=== PATIENT | male | born 1940 | race Caucasian/White ===

== ENCOUNTER → 2018-03-31 10:15 | Outpatient (REF) | payer MEDICARE, SELFPAY ==
[2018-03-31 12:50] LABS: HGB 12.1 g/dL (13.5-17.5); Mean Corp. HGB Concentration 32.7 g/dL (32.0-36.0); Mean Corpuscular Hemoglobin 32.3 pg (27.0-33.0); Mean Corpuscular Volume 98.7 fL (80-95); Mean Platelet Volume 9.1 fL (8.0-11.0); Platelet Count 186 x1000/uL (130-400); RBC 3.75 m/cumm (4.50-6.00); RBC Distribution Width 13.3 % (11.8-14.1); White Blood Cell Count 5.27 k/cumm (4.4-10.8)
[2018-03-31 13:31] LABS: FREE T4 0.89 ng/dL (0.76-1.46); NT-proBNP 117 pg/mL; TSH 8.07 uIU/mL (0.358-3.74)
== END ==
LOC: NCHCN 10:15
PROVIDERS: PCP Internal Medicine; Visit Provider Internal Medicine
DX: E03.9 Hypothyroidism, unspecified (principal); I31.9 Disease of pericardium, unspecified; D64.9 Anemia, unspecified; R06.09 Other forms of dyspnea
CPT/HCPCS: 85027; 83880; 84439; 84443

== ENCOUNTER → 2018-03-31 13:49 | Outpatient (CLI) | payer MEDICARE, SELFPAY ==
--- NOTE | 2018-03-31 13:59 | DI.REPORT_ITS ---
SYMPTOMS/DIAGNOSIS: EXERTIONAL SHORTNESS OF BREATH, R06.09 PA AND LATERAL CHEST: Comparison is made with [id number]. The heart size is normal. There is mild blunting at the right costophrenic angle. No infiltrate, effusion or pulmonary edema is seen. There are underlying fibrotic changes. There is a stable mid thoracic compression fracture. Syndesmophyte formation along the spine is also seen. IMPRESSION: No acute abnormality.
== END ==
PROVIDERS: PCP Internal Medicine; Visit Provider Internal Medicine
DX: R06.09 Other forms of dyspnea (principal)
CPT/HCPCS: 71046

== ENCOUNTER 2018-04-15 15:00 | Outpatient (RCR) | payer MEDICARE, SELFPAY ==
--- NOTE | 2018-03-27 14:41 | IE_ITS ---
Date: March 27, 2018 Referring: Wilbur Fonseca MD M.D. Diagnosis: S/P hip dislocation after THR P.T. 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 He has had a very significant past medical history in the last 2 years. He was cleaning his garage and he fell off a ladder, fracturing vertebra in his neck in the process. This really put him out of commission for quite some time. In his recovery, he started developing heart issues as well, where he was developing fluid around the heart and lungs. On top of all this, he was struggling with severe debilitating pain through the R hip. Eventually, he decided to do something about it once his medical condition, for the most part, improved. He had an anterior THR of the R hip conducted on 03/04/18. On , he was trying to get off of a raised toilet, when he felt a sudden, sharp , stabbing pain through the R hip and was incapable of standing up. He went to the E.R. and x-rays were taken. He was diagnosed with a dislocation anteriorly of his total hip prosthetic. It was reduced that nigh in the ED and he has been on bed rest for the past 2 weeks, as well as the knee placed in a knee immobilizer due to quad dysfunction. He has now been authorized for PT, but strictly no PROM and only active and AA within his tolerable level, and also light scar tissue mobilization. Pain Ratin/10 Prior Level of Function: Walking with severe limp and debilitation through the R hip. Current Level of Function: Almost complete debilitation with hardly any walking beyond a couple hundred feet. Previous Treatment: Nothing. Social: He lives in [place] with his . Comorbidities: History of inflammation around the heart, arthritis, cervical spine fracture. Medications: Tramadol, Tylenol and existing past medical required medications that have been reviewed and you can observe EMR for full details. Quality of Life: __X__ Good Standardized Measures: LEFS score: __100%__ OBJECTIVE: Posture: In standing, pt demonstrates an anteriorly flexed posture into his walker. WBOS, WB bias onto the L. Gait: Ambulates with a step-2 gait pattern into his walker antalgic with reduction of stance time through the R. Palpation: He is tender through the surgical incision. It appears to be healing , although still covered with the dressing. ROM: Measurements for this pt are as follows: L hip Flexion 110 ER 40 IR 20 Abduction 45 R hip Flexion 80 ER 15 IR not assessed Abduction 30 Strength: Measurements for this pt are as follows: Hip flexion 3/5 R, 4+/5 L Quads 4/5 R, 5/5 L Hamstrings 4/5 R, 5/5 L Dorsiflexion 5/5 bilaterally Plantar flexion 5/5 bilaterally Glute medius 3-/5 R, 4-/5 L Neuro: Pt intact to light touch and sensation through LE dermatomes. Motor control appears intact over associated myotomes and pt demonstrates appropriate proprioception and kinesthetic awareness. Special Tests: None at this time due to acuity. Treatment: IE and assessment of functional mobilities, as well as training in a formal exercise program. Pt demonstrated verbal acknowledgment and technique demonstration. IE: X [id number] Direct treatment time: 45 min Total treatment time: 45 min direct pt care ASSESSMENT: Patient is a 77-year-old male with a history of recent health conditions affecting function, referred for PT services with the diagnosis of THR with subsequent dislocation of a prosthetic device 5 days post. Patient presents with clinical signs and symptoms consistent with this diagnosis, as demonstrated by the following impairment level findings: severe ROM and strength limitations through the R, antalgic gait with use of 2 WW, pain at rest through the R hip. Impairments are contributing to the following functional limitations:difficulty with any walking or any head baggage porter and ADLs. Patient is assessed as: __X__ Moderate 50965 complexity, based on the following: History: (list): Inflammation around the heart and pulmonary edema, arthritis, cervical spine fracture. Examination: (list): Severe limitation in AROM through the R hip, strength limitations through the R hip and RLE, antalgic gait and pain at rest. Presentation: X Evolving Decision-Making: X Moderate complexity 100 % Disability based on LEFS __X__ Patient requires skilled PT intervention to remediate the above functional limitations to return to: __X__ Premorbid level of function Prognosis: __X__ Good as evidence suggests improvement of functional abilities with compliance to a detailed HEP tailored to his diagnosis and following through with PT intervention. ____ Patient does not require skilled PT intervention. G-Codes (fill in modifier after appropriate code): Patient's primary functional limitation is in the category of: __X__ Mobility - walking and moving around : [id number] as justified by pt not being able to walk over 100 ft with use of walker and virtually no involvement in normalized head baggage porter and activities. Projected goal: __X__ Mobility - walking and moving around: [id number] [id number] modifier to be utilized as justified by above documentation for necessity of continued Physical Therapy intervention to attend to functional deficits which have not been fully remediated as they approach their Medicare cap. STG: __2__ weeks. 1. Pt will be independent in HEP both verbally and with ideal technique demonstration. LTG: __10__ weeks. 1. Pt able to walk up to 1/2 mile with least restrictive assistive device. 2. Pt unlimited in head baggage porter and activities up to premorbid level of function. PLAN: Patient to be seen 2 x per week, for 10 weeks, adjusting frequency of visits per patient symptoms and response to treatment. Treatment to include: X Manual therapy - [id number]: for enhancing muscle extensibility and improving joint arthrokinematics. X Therapeutic exercise - [id number] tactile cues, verbal education and advanced movement correctives for establishing stability motor control through the core and pelvic girdle, as well as strength and stability through the LEs. X Ultrasound and e-stim available for pain modulation as necessary. The pt will be monitored for compliance to HEP and pts status will be updated accordingly. Plan may be modified as symptoms dictate. Thank you for this referral. Please do not hesitate to contact me with any questions or concerns regarding this patient's plan of care. LUCILLE/fw MEDICAREDr. Fonseca, please sign below and return to PT if you agree with above POC. Wilbur Fonseca MD
--- NOTE | 2018-03-30 16:37 | PTTR_ITS ---
DATE: 03/30/18 SUBJECTIVE: I am doing okay. OBJECTIVE: Manual therapy: ([id number]). Patient was placed in supine and mobilized with the knee in the flexion of 45 position. He was mobilized with soft tissue work through the distal quadriceps up to just inferior of his incision site. Light cross grain massage technique was applied for tension reduction via down regulation and patient mobilized with light trigger point techniques as well through mid substance quad. He tolerated treatment well. Therapeutic procedures ([id number]). * X HEP review: [] * X Provided skilled instruction in proper exercise performance: [] * X Provided skilled manual cues to facilitate proper muscle recruitment and/ or movement pattern: [] * X Other: Patient working through heel slides as well for active hip flexion and extension. He was supported through his SLR, and SAQ. Light isometric hip abduction completed x 10 as well. Direct treatment time: 30 minutes of direct patient care.
--- NOTE | 2018-04-06 15:46 | PTTR_ITS ---
DATE: 04/06/18 SUBJECTIVE: I am doing okay for the most part. OBJECTIVE: Therapeutic procedures ([id number]). * X HEP review: Technique review and corrective modification where appropriate. * X Provided skilled instruction in proper exercise performance: [] * X Provided skilled manual cues to facilitate proper muscle recruitment and/ or movement pattern: [] * X Other: Patient was guided through his strengthening program which began with active hip motion heel slides, then SAQ for 2 sets of 10. Terminal mass extension was performed with good tolerance for 1 minute of interval, and elevated hip girdle early bridging was performed with good technique and tolerance. Patient transfers from supine to sit and sit to stand without knee immobilizer and is able to walk 200 feet as well. Light soft tissue work was completed over the anterior quadriceps for desensitization. Patient tolerated treatment well. Direct treatment time: 30 minutes of direct patient care.
--- NOTE | 2018-04-09 15:48 | PTTR_ITS ---
DATE: 04/09/18 SUBJECTIVE: I am doing pretty much the same. OBJECTIVE: Therapeutic procedures ([id number]). * X HEP review: Technique review and corrective modification where appropriate. * X Provided skilled instruction in proper exercise performance: [] * X Provided skilled manual cues to facilitate proper muscle recruitment and/ or movement pattern: [] * X Other: Patient was removed from the immobilizer for his exercises. He performed Assisted SLR 2 x 10, bridge with unweighting for isometric hold 2 x 10. Mass extensions form hip 85 degrees of flexion and 90 degrees of knee flexion. Patient performing SAQ from 20 degrees of knee flexion coupled with heel slides. He was then placed in 45 degrees of hip and knee flexion with gentle soft tissue mobilization of the quadriceps. Direct treatment time: 30 minutes of direct patient care.
--- NOTE | 2018-04-15 16:39 | PTTR_ITS ---
DATE: 04/15/18 SUBJECTIVE: I am doing okay for the most part. OBJECTIVE: Therapeutic procedures ([id number]). * X HEP review: Technique review and corrective modification where appropriate. * X Provided skilled instruction in proper exercise performance: [] * X Provided skilled manual cues to facilitate proper muscle recruitment and/ or movement pattern: [] * X Other: Patient was guided through his exercises with good attention to corrective movement. He also received light soft tissue work to the anterior thigh just distal to his incision for decompression and muscle tension relief. Direct treatment time: 25 minutes of direct patient care.
== END 2018-04-17 23:59 | disposition home or self-care (01) ==
LOC: PT 15:00
PROVIDERS: PCP Internal Medicine; Referring Provider Orthopaedic Surgery Adult Reconstructive Orthopaedic Surgery; Visit Provider Orthopaedic Surgery Adult Reconstructive Orthopaedic Surgery
DX: Z47.1 Aftercare following joint replacement surgery (principal); Z96.641 Presence of right artificial hip joint
CPT/HCPCS: 97110; 97140; 97162; G8978

== ENCOUNTER → 2018-06-10 13:59 | Outpatient (BNVA) | payer MEDICARE, SELFPAY | PROVIDERS: PCP Internal Medicine; Referring Provider Internal Medicine; Visit Provider Student in an Organized Health Care Education/Training Program | DX: M75.81 Other shoulder lesions, right shoulder (principal); M25.511 Pain in right shoulder | CPT/HCPCS: 99214 ==

== ENCOUNTER → 2018-07-22 14:40 | Outpatient (BNVA) | payer MEDICARE, SELFPAY | PROVIDERS: PCP Internal Medicine; Referring Provider Internal Medicine; Visit Provider Student in an Organized Health Care Education/Training Program | DX: M75.81 Other shoulder lesions, right shoulder (principal) | CPT/HCPCS: 99212; 99213 ==

== ENCOUNTER 2018-08-21 17:22 | Outpatient (REF) | payer MEDICARE, SELFPAY ==
[2018-08-21 20:52] LABS: HCT 39.1 % (40.0-50.0); HGB 12.7 g/dL (13.5-17.5); Mean Corp. HGB Concentration 32.5 g/dL (32.0-36.0); Mean Corpuscular Hemoglobin 32.6 pg (27.0-33.0); Mean Corpuscular Volume 100.5 fL (80-95); Mean Platelet Volume 9.8 fL (8.0-11.0); Platelet Count 121 x1000/uL (130-400); RBC 3.89 m/cumm (4.50-6.00); RBC Distribution Width 14.7 % (11.8-14.1); White Blood Cell Count 3.83 k/cumm (4.4-10.8)
[2018-08-21 21:11] LABS: ALT 38 U/L (12-78); AST 36 U/L (15-37); Albumin 3.5 g/dL (3.4-5.0); Alkaline Phosphatase 85 U/L (46-116); Anion Gap 6.8 mmol/L (3-11); BUN 18 mg/dL (7-18); Bilirubin, Total 0.4 mg/dL (0.2-1.0); CO2 31.2 mmol/L (21.0-32.0); CREATININE 1.03 mg/dL (0.70-1.30); Calcium 8.9 mg/dL (8.5-10.1); Chloride 103 mmol/L (98-107); FREE T4 1.73 ng/dL (0.76-1.46); Glucose 96 mg/dL (70-100); NT-proBNP 143 pg/mL; Potassium 4.2 mmol/L (3.5-5.1); Sodium 141 mmol/L (136-145); TSH 0.03 uIU/mL (0.358-3.74)
[2018-08-25 18:13] LABS: Thyrotropin Receptor Ab <1.00 IU/L
== END 2018-08-21 17:42 ==
LOC: NCHCN 17:22
PROVIDERS: PCP Internal Medicine; Visit Provider Internal Medicine
DX: R53.83 Other fatigue (principal); R00.0 Tachycardia, unspecified; R63.4 Abnormal weight loss; E03.9 Hypothyroidism, unspecified; R06.09 Other forms of dyspnea; E05.90 Thyrotoxicosis, unspecified without thyrotoxic crisis or storm
CPT/HCPCS: 80053; 85027; 83880; 84235; 84439; 84443; 84481

== ENCOUNTER 2018-09-17 00:47 | Outpatient (CLI) | payer MEDICARE, SELFPAY ==
--- NOTE | 2018-09-17 10:15 | DI.NM_ITS ---
SYMPTOMS/DIAGNOSIS: HYPERTHYROIDISM, E05.90 THYROID UPTAKE AND SCAN: Please see dictation dated 09/18/18 for the complete results of this examination.
== END 2018-09-17 01:07 ==
PROVIDERS: PCP Internal Medicine; Visit Provider Internal Medicine
DX: E05.90 Thyrotoxicosis, unspecified without thyrotoxic crisis or storm (principal)
CPT/HCPCS: A9516

== ENCOUNTER 2018-09-18 00:15 | Outpatient (CLI) | payer MEDICARE, SELFPAY ==
--- NOTE | 2018-09-18 10:15 | DI.NM_ITS ---
SYMPTOM/DIAGNOSIS: HYPERTHYROIDISM E05.90 THYROID UPTAKE AND SCAN: 09/17/18 24 HOUR radiographic iodine uptake determination was performed with ingestion of 347 microcuries of I-123 capsule. 24 hour uptake is calculated at 1.9% which is below the normal range. Scanning of the cervical region approximately 4 hours post ingestion of radiopharmaceutical shows fairly homogeneous appearance of the thyroid as visualized. CONCLUSION: Abnormally decreased thyroid uptake determination. Thyroid scan grossly unremarkable considering the decreased thyroid uptake.
== END 2018-09-18 00:35 ==
PROVIDERS: PCP Internal Medicine; Visit Provider Internal Medicine
DX: E05.90 Thyrotoxicosis, unspecified without thyrotoxic crisis or storm (principal); R94.6 Abnormal results of thyroid function studies
CPT/HCPCS: 78014; A9512

== ENCOUNTER 2018-10-09 12:20 | Outpatient (CLI) | payer MEDICARE, SELFPAY ==
--- NOTE | 2018-10-09 16:06 | DI.RAD_ITS ---
SYMPTOM/DIAGNOSIS: NONPRODUCTIVE COUGH, R05 PA AND LATERAL CHEST: Comparison is made with 03/31/18. The heart size is normal. The aorta is tortuous but normal in diameter. The lungs are not well inflated on either view. Linear scarring is again noted at the lung bases. No superimposed infiltrate, effusion or pulmonary edema is seen. A mid thoracic compression fracture and bony changes in the spine of ankylosing spondylitis are noted. IMPRESSION: No acute abnormality.
== END 2018-10-09 12:40 ==
PROVIDERS: PCP Internal Medicine; Visit Provider Internal Medicine
DX: R05 Cough (principal); J98.4 Other disorders of lung
CPT/HCPCS: 71046

== ENCOUNTER 2018-10-22 02:27 | Outpatient (CLI) | payer MEDICARE, SELFPAY ==
[2018-10-22 16:12] LABS: Abs Immature Grans 0.01 k/cumm (0.0-0.09); Absolute Basophil Count 0.03 k/cumm (0.0-0.2); Absolute Eosinophil Count 0.24 k/cumm (0.0-0.7); Absolute Monocyte Count 0.57 k/cumm (0.11-0.7); Absolute Neutrophil Count 2.25 k/cumm (1.2-6.7); Basophils % 0.7; Eosinophils % 5.7; HCT 38.6 % (40.0-50.0); HGB 12.5 g/dL (13.5-17.5); Immature Grans % 0.2; Lymphocytes % 26.2; Mean Corp. HGB Concentration 32.4 g/dL (32.0-36.0); Mean Corpuscular Hemoglobin 31.5 pg (27.0-33.0); Mean Corpuscular Volume 97.2 fL (80-95); Mean Platelet Volume 9.2 fL (8.0-11.0); Monocytes % 13.6; Neutrophils % 53.6; Platelet Count 128 x1000/uL (130-400); RBC 3.97 m/cumm (4.50-6.00); RBC Distribution Width 13.1 % (11.8-14.1)
[2018-10-22 17:02] LABS: FREE T4 1.18 ng/dL (0.76-1.46); TSH 0.07 uIU/mL (0.358-3.74)
[2018-10-22 21:06] LABS: T3,Free 4.7 pg/ml (2.8-5.3)
== END 2018-10-22 02:47 ==
PROVIDERS: PCP Internal Medicine; Visit Provider Internal Medicine Rheumatology
DX: E05.90 Thyrotoxicosis, unspecified without thyrotoxic crisis or storm (principal); D61.818 Other pancytopenia; R76.8 Other specified abnormal immunological findings in serum
CPT/HCPCS: 36415; 84439; 84443; 84481; 85025

== ENCOUNTER 2019-01-19 11:19 | Outpatient (REF) | payer MEDICARE, SELFPAY ==
[2019-01-19 22:06] LABS: HCT 43.4 % (40.0-50.0); Mean Corp. HGB Concentration 32.3 g/dL (32.0-36.0); Mean Corpuscular Hemoglobin 31.5 pg (27.0-33.0); Mean Corpuscular Volume 97.5 fL (80-95); Platelet Count 123 x1000/uL (130-400); RBC 4.45 m/cumm (4.50-6.00); RBC Distribution Width 13.4 % (11.8-14.1); White Blood Cell Count 5.11 k/cumm (4.4-10.8)
[2019-01-19 22:26] LABS: FREE T4 0.65 ng/dL (0.76-1.46); TSH 19.01 uIU/mL (0.358-3.74)
[2019-01-20 17:02] LABS: T3,Free 3.5 pg/ml (2.8-5.3)
== END 2019-01-19 11:39 ==
LOC: NCHCN 11:19
PROVIDERS: PCP Internal Medicine; Visit Provider Internal Medicine
DX: D64.9 Anemia, unspecified (principal); Z86.39 Personal history of other endocrine, nutritional and metabolic disease
CPT/HCPCS: 85027; 84439; 84443; 84481

== ENCOUNTER 2019-02-16 15:30 | Outpatient (REF) | payer MEDICARE, SELFPAY ==
[2019-02-16 22:05] LABS: Abs Immature Grans 0.01 k/cumm (0.0-0.09); Absolute Basophil Count 0.01 k/cumm (0.0-0.2); Absolute Eosinophil Count 0.31 k/cumm (0.0-0.7); Absolute Lymphocyte Count 0.99 k/cumm (1.2-3.4); Absolute Monocyte Count 0.78 k/cumm (0.11-0.7); Absolute Neutrophil Count 3.56 k/cumm (1.2-6.7); Basophils % 0.2; Eosinophils % 5.5; HCT 40.4 % (40.0-50.0); HGB 13.2 g/dL (13.5-17.5); Immature Grans % 0.2; Lymphocytes % 17.5; Mean Corp. HGB Concentration 32.7 g/dL (32.0-36.0); Mean Corpuscular Hemoglobin 31.2 pg (27.0-33.0); Mean Corpuscular Volume 95.5 fL (80-95); Mean Platelet Volume 10.1 fL (8.0-11.0); Monocytes % 13.8; Neutrophils % 62.8; Platelet Count 102 x1000/uL (130-400); RBC 4.23 m/cumm (4.50-6.00); RBC Distribution Width 13.3 % (11.8-14.1); White Blood Cell Count 5.66 k/cumm (4.4-10.8)
[2019-02-16 22:50] LABS: Anion Gap 7.3 mmol/L (3-11); BUN 14 mg/dL (7-18); CO2 29.7 mmol/L (21.0-32.0); CREATININE 1.16 mg/dL (0.70-1.30); Calcium 8.6 mg/dL (8.5-10.1); Chloride 99 mmol/L (98-107); Glucose 103 mg/dL (70-100); NT-proBNP 174 pg/mL; Sodium 136 mmol/L (136-145); TSH (W/Ref FT4) 10.35 uIU/mL (0.358-3.74)
[2019-02-16 23:15] LABS: FREE T4 0.94 ng/dL (0.76-1.46)
== END 2019-02-16 15:50 ==
LOC: NCHCN 15:30
PROVIDERS: PCP Internal Medicine; Visit Provider Nurse Practitioner Family
DX: R60.0 Localized edema (principal); R53.83 Other fatigue; R06.09 Other forms of dyspnea
CPT/HCPCS: 80048; 83735; 83880; 84439; 84443; 85025

== ENCOUNTER 2019-02-17 07:03 | Outpatient (CLI) | payer MEDICARE, SELFPAY ==
--- NOTE | 2019-02-17 11:44 | DI.RAD_ITS ---
SYMPTOMS/DIAGNOSIS: PEDAL EDEMA, R60.0, FATIGUE, R53.83 PA AND LATERAL CHEST: The lungs are free of infiltrate. There is no pleural effusion. The heart is not enlarged. SUMMARY: No evidence of congestive failure or pneumonia.
== END 2019-02-17 07:23 ==
PROVIDERS: PCP Internal Medicine; Visit Provider Nurse Practitioner Family
DX: R60.0 Localized edema (principal); R53.83 Other fatigue
CPT/HCPCS: 71046

== ENCOUNTER 2019-04-08 13:09 | Outpatient (REF) | payer MEDICARE, SELFPAY ==
[2019-04-08 22:00] LABS: FREE T4 0.86 ng/dL (0.76-1.46); TSH 8.05 uIU/mL (0.36-3.74)
== END 2019-04-08 13:29 ==
LOC: NCHCN 13:09
PROVIDERS: PCP Internal Medicine; Visit Provider Internal Medicine
DX: E03.9 Hypothyroidism, unspecified (principal)
CPT/HCPCS: 84439; 84443

== ENCOUNTER 2019-10-07 15:26 | Outpatient (REF) | payer MEDICARE, SELFPAY ==
[2019-10-08 17:15] LABS: T3,Free 3.4 pg/mL (2.8-5.3)
== END 2019-10-07 15:46 ==
LOC: NCHCN ADD 15:26
PROVIDERS: PCP Internal Medicine; Visit Provider Internal Medicine
DX: E03.9 Hypothyroidism, unspecified (principal); Z86.79 Personal history of other diseases of the circulatory system
CPT/HCPCS: 84439; 84443; 84481

== ENCOUNTER 2019-12-14 16:30 | Outpatient (REF) | payer MEDICARE, SELFPAY ==
[2019-12-14 21:12] LABS: ALT 32 U/L (16-63); AST 26 U/L (15-37); Albumin 3.7 g/dL (3.4-5.0); Alkaline Phosphatase 71 U/L (46-116); Anion Gap 5.9 mmol/L (3-11); BUN 18 mg/dL (7-18); Bilirubin, Total 0.5 mg/dL (0.2-1.0); CO2 31.1 mmol/L (21.0-32.0); CREATININE 1.29 mg/dL (0.70-1.30); Calcium 8.9 mg/dL (8.5-10.1); Chloride 100 mmol/L (98-107); Estimated GFR 53.46 (mL/min/1.73m2); Glucose 142 mg/dL (74-106); Potassium 4.9 mmol/L (3.5-5.1); Sodium 137 mmol/L (136-145); TSH (W/Ref FT4) 6.35 uIU/mL (0.36-3.74); Total Protein 7.5 g/dL (6.4-8.2)
[2019-12-14 22:55] LABS: FREE T4 0.92 ng/dL (0.76-1.46)
== END 2019-12-14 16:50 ==
LOC: NCHCN 16:30
PROVIDERS: PCP Internal Medicine; Visit Provider Internal Medicine
DX: E03.9 Hypothyroidism, unspecified (principal); F32.9 Major depressive disorder, single episode, unspecified; D64.9 Anemia, unspecified
CPT/HCPCS: 80053; 84439; 84443; 85025

== ENCOUNTER 2019-12-15 11:49 | Outpatient (REF) | payer MEDICARE, SELFPAY ==
[2019-12-15 20:49] LABS: Abs Immature Grans 0.02 k/cumm (0.0-0.09); Absolute Basophil Count 0.02 k/cumm (0.0-0.2); Absolute Eosinophil Count 0.31 k/cumm (0.0-0.7); Absolute Lymphocyte Count 1.54 k/cumm (1.2-3.4); Absolute Monocyte Count 1.12 k/cumm (0.11-0.7); Absolute Neutrophil Count 3.11 k/cumm (1.2-6.7); Basophils % 0.3; Eosinophils % 5.1; HGB 13.6 g/dL (13.5-17.5); Immature Grans % 0.3 %; Lymphocytes % 25.2; Mean Corp. HGB Concentration 33.2 g/dL (32.0-36.0); Mean Corpuscular Hemoglobin 32.2 pg (27.0-33.0); Mean Corpuscular Volume 96.9 fL (80-95); Mean Platelet Volume 9.6 fL (8.0-11.0); Monocytes % 18.3; Neutrophils % 50.8; Platelet Count 126 x1000/uL (130-400); RBC 4.23 m/cumm (4.50-6.00); RBC Distribution Width 12.6 % (11.8-14.1); White Blood Cell Count 6.12 k/cumm (4.4-10.8)
== END 2019-12-15 12:09 ==
LOC: NCHCN 11:49
PROVIDERS: PCP Internal Medicine; Visit Provider Internal Medicine
DX: D64.9 Anemia, unspecified (principal)
CPT/HCPCS: 85025

== ENCOUNTER 2020-02-15 16:15 | Outpatient (REF) | payer MEDICARE, SELFPAY ==
[2020-02-15 21:18] LABS: FREE T4 1.11 ng/dL (0.76-1.46); TSH 2.61 uIU/mL (0.36-3.74)
[2020-02-15 21:23] LABS: Hemoglobin A1C 5.4 % (3.8-5.6)
== END 2020-02-15 16:35 ==
LOC: NCHCN 16:15
PROVIDERS: PCP Internal Medicine; Visit Provider Internal Medicine
DX: E03.9 Hypothyroidism, unspecified (principal); R73.09 Other abnormal glucose; Z86.39 Personal history of other endocrine, nutritional and metabolic disease
CPT/HCPCS: 83036; 84439; 84443

== ENCOUNTER 2021-02-05 18:50 | Outpatient (REF) | payer MEDICARE, SELFPAY ==
[2021-02-05 22:01] LABS: HCT 40.8 % (40.0-50.0); HGB 13.2 g/dL (13.5-17.5); MCH 31.5 pg (27.0-33.0); MCHC 32.4 % (32.0-36.0); MCV 97.4 fL (80-95); MPV 9.2 fL (8.0-11.0); Platelet Count 131 10^3/uL (130-400); RBC 4.19 10^6/uL (4.36-5.78); RDW 12.8 % (11.8-14.1); RDW-SD 46.2 fL; WBC 8.05 10^3/uL (4.4-10.8)
[2021-02-05 22:31] LABS: ALT 37 U/L (16-63); AST 30 U/L (15-37); Albumin 3.8 g/dL (3.4-5.0); Alkaline Phosphatase 72 U/L (46-116); Anion Gap 8.6 mmol/L (3-11); BUN 19 mg/dL (7-18); Bilirubin, Total 0.8 mg/dL (0.2-1.0); CO2 28.4 mmol/L (21.0-32.0); CREATININE 1.3 mg/dL (0.70-1.30); Calcium 8.6 mg/dL (8.5-10.1); Chloride 98 mmol/L (98-107); Estimated GFR 52.85 (mL/min/1.73m2); FREE T4 1.08 ng/dL (0.76-1.46); Glucose 128 mg/dL (74-106); Potassium 4.5 mmol/L (3.5-5.1); Sodium 135 mmol/L (136-145); TSH 1.49 uIU/mL (0.36-3.74); Total Protein 7.5 g/dL (6.4-8.2)
[2021-02-07 14:22] LABS: COVID-19 RT-PCR UVMMC Result Negative (Negative)
== END 2021-02-05 18:51 | disposition home or self-care (01) ==
LOC: NCHCN 18:50
PROVIDERS: PCP Internal Medicine; Visit Provider Internal Medicine
DX: R41.82 Altered mental status, unspecified (principal); J18.9 Pneumonia, unspecified organism; Z20.822 Contact with and (suspected) exposure to COVID-19
CPT/HCPCS: 80053; 85027; U0003; 84439; 84443

== ENCOUNTER 2021-02-07 11:03 | Emergency (ER) | payer MEDICARE, SELFPAY ==
[2021-02-07 11:07] VITALS: BP 143/80; PULSE 101; RESP 18; TEMP 37.1; O2SAT 95
[2021-02-07 11:20] VITALS: RESP 18
--- NOTE | 2021-02-07 11:25 | RT.EKG_ITS ---
APPROVED REPORT Exam: Resting ECG Reason for Exam: SOB Patient Location: E HR:95 bpm ECG Measurements Heart Rate 95 AXIS IA 176 P 50 QRSd 97 QRS 71 QT 362 T -38 QTc 455 Conclusion Sinus rhythm...normal P axis, V-rate 60- 99 Borderline T abnormalities, diffuse leads...T flat/neg. No STEMI. I have reviewed and interpreted ECG and agree with software generated interpretation.
--- NOTE | 2021-02-07 11:30 | ED.GENADUL_ITS ---
Discharge Plan Disposition Patient Disposition: HOME Condition: Stable Discharge Details Clinical Impression: Cough Primary Care Provider: Prakash Curran ED Provider: Chelsea Mariano Home Meds and New Rx's Prescriptions: New albuterol sulfate 90 mcg/actuation HFA aerosol inhaler 2 puff IH QID PRN (Reason: shortness of breath or wheezing) Qty: 8 RF: 0 Continued multivitamin [Daily Multiple] 1 EACH tablet 1 ea PO DAILY RF: 0 acetaminophen [Tylenol] 325 MG tablet 325 mg PO PRN RF: 0 aspirin 81 MG tablet,chewable 81 mg PO DAILY RF: 0 levothyroxine 100 mcg tablet 100 mcg PO DAILY RF: 0 amoxicillin 875 mg tablet 875 mg PO BID RF: 0 doxycycline hyclate 100 mg tablet 100 mg PO BID RF: 0 Lumigan 0.01 % drops 1 drp ophthalmic (eye) HS RF: 0 Discharge Instructions Instructions: Acute Cough (ED) Additional Instructions: Continue taking the antibiotics previously prescribed. Use albuterol inhaler 1 to 2 puffs every 4-6 hours as needed for wheezing or shortness of breath. At this time you have no evidence for need for admission. Follow up with primary care provider in 3-5 days. Return to ED sooner if any worsening or concerns. Increase oral fluids. Referrals: Prakash Curran MD [Primary Care Provider] - Discharge Data Discharge Date/Time-TO BE ENTERED AT DEPARTURE: 02/07/21 15:02 Medical Decision Making 80-year-old male with a history of hypothyroidism, dyspepsia, atrial flutter, pericarditis, subdural hematoma, arthritis former smoker, who presents to the ER from the PCP office for worsening possible pneumonia. Patient states that he has had a congested cough for the past 9 days with some exertional shortness of breath. Was seen by his PCP and prescribed doxycycline and amoxicillin which she has taken for the last few days. He denies any nausea vomiting diarrhea denies any chest pain. He does endorse some chills no fever. Upon initial exam he is alert and oriented O2 sat is 94% on room air, he does have scattered wheezes rhonchi in the right lower lobe. He is speaking in full sentences. He has been vaccinated for COVID-19. Work-up ordered including CBC, CMP, serial troponins, EKG, chest x-ray, blood cultures x2, albuterol, ipratropium neb, COVID-19 swab ordered to rule out viral illness. EXAM: XR PORTABLE CHEST AP CLINICAL HISTORY: SOB, Hx pneumonia. TECHNIQUE: 2D digital imaging was performed. COMPARISON: CR XR CHEST 2V PA LATERAL from 02/17/2019 FINDINGS: Chest leads in place. Heart size upper normal, unchanged. The mediastinum is not widened. Platelike atelectasis or scarring in the left lung base is unchanged. Also platelike atelectasis or scarring in the right lung base also unchanged. There are mild increased markings in both lung hackett but no new infiltrates nor pleural effusions. No pulmonary edema. Calcific rotator cuff tendinitis right shoulder is incidentally noted IMPRESSION: Bibasilar atelectasis or scarring, with minimal changed from two view study of February 2019. CBC shows no evidence for leukocytosis, platelets are 113, serial troponins are within normal limits. Discussed findings with patient who verbalized understanding instructed to continue taking the previously prescribed antibiotics sent home with an albuterol inhaler 2 puffs every 4-6 hours as needed for shortness of breath and wheezing. Instructed to follow-up with PCP in 3 to 5 days return if any worsening. HPI General Mode of arrival: EMS . Date/Time Provider Initiated Documentation: 02/07/21 11:16 . Limitations to Documentation: no limitations . Information obtained by: patient, RN notes reviewed and old records reviewed . HPI Narrative: 80-year-old male with a history of hypothyroidism, dyspepsia, atrial flutter, pericarditis, subdural hematoma, arthritis former smoker, who presents to the ER from the PCP office for worsening possible pneumonia. Patient states that he has had a congested cough for the past 9 days with some exertional shortness of breath. Was seen by his PCP and prescribed doxycycline and amoxicillin which she has taken for the last few days. He denies any nausea vomiting diarrhea denies any chest pain. He does endorse some chills no fever. Upon initial exam he is alert and oriented O2 sat is 94% on room air, he does have scattered wheezes rhonchi in the right lower lobe. He is speaking in full sentences. He has been vaccinated for COVID-19 Related Data Home Medications Medication Instructions Recorded Confirmed multivitamin [Daily Multiple] 1 ea PO DAILY 12/01/15 02/07/21 acetaminophen [Tylenol] 325 mg PO PRN 04/11/17 02/07/21 aspirin 81 mg PO DAILY tab-cap 04/11/17 02/07/21 Jake 1 drp OPHTHALMIC (EYE) HS 02/07/21 02/07/21 albuterol sulfate 2 puff IH QID PRN #8 gm 02/07/21 amoxicillin 875 mg PO BID 02/07/21 02/07/21 doxycycline hyclate 100 mg PO BID 02/07/21 02/07/21 levothyroxine 100 mcg PO DAILY 02/07/21 02/07/21 Previous Rx's Medication Instructions Recorded albuterol sulfate 2 puff IH QID PRN #8 gm 02/07/21 Allergies Allergy/AdvReac Type Severity Reaction Status Date / Time methotrexate Allergy Skin Rash Unverified 02/07/21 11:13 Sulfa (Sulfonamide Allergy flu like Unverified 02/07/21 11:13 Antibiotics) sx, rash head to toe, abn gait General Stated Complaint: SOB YOHANA: 2 Review of Systems Narrative: Constitutional: Negative for weight loss, alert and oriented, well groomed, normal body habitus, appears comfortable. HEENT: Denies trauma, headaches, blurry vision, nasal discharge, sore throat, trouble swallowing. Chest: Denies chest pain, palpitations, has a history of atrial flutter. Respiratory: Denies hemoptysis. Reports mild exertional shortness of breath, congested cough nonproductive. GI: Denies abdominal pain, nausea, vomiting, diarrhea, constipation. : Denies dysuria, hematuria, flank pain, rectal bleeding. Neuro: Denies dizziness, blurry vision, syncope, headache or facial numbness. Hematologic: Denies easy bruising, intolerance to heat or cold, hair loss. [facility] Social History Smoking/Tobacco Use Status: Former Tobacco Use Smoking risk assessment performed?: Yes Alcohol Intake: never Drug use: Never Do you feel safe at home: Yes Do you feel safe in your relationship?: Yes Exam Narrative Exam Narrative: Constitutional: Alert and oriented x3. Appears stated age. Normal body habitus. Head: Normocephalic, no trauma. Eyes: Pupils PERRLA, Red reflex noted, EOM's intact. Eyelids symmetrical without lesions, discharge, or swelling. ENT: Bilateral TM's WNL, External ear normal to inspection, no mastoid TTP, swelling, or erythema, Nasal turbinates WNL, no nasal discharge. Normal dentition, Posterior pharynx WNL, no exudate. Chest: RRR, Normal S1, S2, distal pulses intact. Resp: Lungs notably have expiratory scattered wheezes, rhonchi auscultated to the right lower lobe. Congested cough. Abdomen: Soft, nondistended nontender to palpation all 4 quadrants. Musculoskeletal: Normal gait, 5/5 strength to all four extremities. No edema noted to bilateral lower extremities. Skin: No suspicious rashes or lesions. Capillary refill less than 2 sec. Neurologic: Cranial nerves II-XII intact. Alert and oriented x 3. DTR's intact. Hematologic/Lymphatic: No ecchymosis, no lymphadenopathy. Course Vital Signs Vital signs: Vital Signs Temperature 37.1 C 02/07/21 11:07 Pulse 101 H 02/07/21 11:07 Respiratory Rate 18 02/07/21 11:07 Blood Pressure 143/80 H 02/07/21 11:07 Pulse Oximetry 95 02/07/21 11:07 Temperature 37.1 C 02/07/21 11:07 Temperature Source Oral 02/07/21 11:07 Pulse 101 H 02/07/21 11:07 Respiratory Rate 18 02/07/21 11:20 Respiratory Effort 02/07/21 11:20 Respiratory Depth Normal 02/07/21 11:20 Respiratory Pattern Normal 02/07/21 11:20 Blood Pressure 143/80 H 02/07/21 11:07 Blood Pressure Position Supine 02/07/21 11:07 Pulse Oximetry 95 02/07/21 11:07 Oxygen Delivery Method Room Air 02/07/21 11:07 Oxygen Flow Rate 0 02/07/21 11:07 Pain Level 0 02/07/21 11:07
[2021-02-07 11:58] LABS: Abs Immature Grans 0.04 10^3/uL (0.0-0.06); Absolute Basophil Count 0.03 10^3/uL (0.0-0.2); Absolute Eosinophil Count 0.24 10^3/uL (0.0-0.7); Absolute Lymphocyte Count 1.18 10^3/uL (1.2-3.4); Absolute Monocyte Count 1.07 10^3/uL (0.1-0.8); Absolute Neutrophil Count 6.94 10^3/uL (1.2-6.7); Basophils % 0.3; Eosinophils % 2.5; HCT 40.6 % (40.0-50.0); HGB 13.6 g/dL (13.5-17.5); Immature Grans % 0.4; Lymphocytes % 12.4; MCH 32.3 pg (27.0-33.0); MCHC 33.5 % (32.0-36.0); MCV 96.4 fL (80-95); MPV 9.1 fL (8.0-11.0); Monocytes % 11.3; Neutrophils % 73.1; Nucleated RBC 0 %; Platelet Count 113 10^3/uL (130-400); RBC 4.21 10^6/uL (4.36-5.78); RDW 13.2 % (11.8-14.1)
[2021-02-07 12:01] LABS: Source Nasal/Nares
[2021-02-07 12:01] LABS: ALT 29 U/L (16-63); AST 28 U/L (15-37); Albumin 3.4 g/dL (3.4-5.0); Alkaline Phosphatase 59 U/L (46-116); Anion Gap 8.1 mmol/L (3-11); BUN 22 mg/dL (7-18); Bilirubin, Total 0.7 mg/dL (0.2-1.0); CO2 28.9 mmol/L (21.0-32.0); CREATININE 1.3 mg/dL (0.70-1.30); Calcium 8.8 mg/dL (8.5-10.1); Chloride 100 mmol/L (98-107); Estimated GFR 52.85 (mL/min/1.73m2); Glucose 146 mg/dL (74-106); Magnesium 2.3 mg/dL (1.8-2.4); Potassium 3.8 mmol/L (3.5-5.1); Sodium 137 mmol/L (136-145); Total Protein 7.8 g/dL (6.4-8.2)
[2021-02-07 12:04] LABS: Troponin I < 0.05 ng/mL (<0.06)
--- NOTE | 2021-02-07 12:40 | DI.RAD_ITS ---
Exam(s) XR PORTABLE CHEST AP EXAM: XR PORTABLE CHEST AP CLINICAL HISTORY: SOB, Hx pneumonia. TECHNIQUE: 2D digital imaging was performed. COMPARISON: CR XR CHEST 2V PA LATERAL from 02/17/2019 FINDINGS: Chest leads in place. Heart size upper normal, unchanged. The mediastinum is not widened. Platelike atelectasis or scarring in the left lung base is unchanged. Also platelike atelectasis or scarring in the right lung base also unchanged. There are mild increased markings in both lung field s but no new infiltrates nor pleural effusions. No pulmonary edema. Calcific rotator cuff tendiniti s right shoulder is incidentally noted IMPRESSION: Bibasilar atelectasis or scarring, with minimal changed from two view study of February 2019. DATA REPOSITORY: RADIATION DOSE DELIVERED: All CT scans at this facility use at least one of these dose optimization techniques: automated exposure control; mA and/or kV adjustment per patient size (includes targeted e xams where dose is matched to clinical indication); or iterative reconstruction.
[2021-02-07 12:49] VITALS: PULSE 85; RESP 17; RESP 2; RESP 7; O2SAT 95
[2021-02-07] MEDS: Albuterol/Ipratropium 3 ML UPD VIAL UPD (12:49)
[2021-02-07 12:57] LABS: COVID-19 PCR Negative (Negative)
[2021-02-07 13:01] VITALS: BP 111/73; PULSE 90; RESP 17; TEMP 36.8; O2SAT 100
[2021-02-07 14:28] VITALS: BP 124/64; PULSE 82; RESP 16; TEMP 36.8; O2SAT 95
== END 2021-02-07 15:02 | disposition home or self-care (01) ==
PROVIDERS: Emergency Provider Registered Nurse Emergency; PCP Internal Medicine
DX: R05 Cough (principal); R06.09 Other forms of dyspnea; Z20.822 Contact with and (suspected) exposure to COVID-19; Z03.818 Encounter for observation for suspected exposure to other biological agents ruled out; Z87.891 Personal history of nicotine dependence
CPT/HCPCS: 36410; 36415; 80053; 87040; 87635; 93005; 94640; 99285; 71045; 83735; 84484; 85025; 93010; 99284; J7620

== ENCOUNTER 2021-03-05 10:34 | Outpatient (CLI) | payer MEDICARE, SELFPAY ==
--- NOTE | 2021-03-05 09:45 | DI.RAD_ITS ---
Exam(s) XR HIP RT COMPLETE AP PELVIS EXAM: XR HIP RT COMPLETE AP PELVIS CLINICAL HISTORY: right SILAS. TECHNIQUE: 2D digital imaging was performed. COMPARISON: Prior x-rays 03/09/2018 FINDINGS: Stable position alignment of the right hip prosthesis. No fracture nor loosening evident. Circumfer ential wires at the intertrochanteric level appear intact no obvious loosening and no radiographic ev idence of osteomyelitis. IMPRESSION: DATA REPOSITORY: RADIATION DOSE DELIVERED:
--- NOTE | 2021-03-05 09:45 | DI.RAD_ITS ---
Exam(s) XR KNEE LT 3V AP,LAT,IVANIA EXAM: XR KNEE LT 3V AP,LAT,IVANIA CLINICAL HISTORY: left knee pain. TECHNIQUE: 2D digital imaging was performed. COMPARISON: CR RIGHT KNEE LIMITED 1 OR 2 VIEW from 10/18/2015 FINDINGS: There is no evidence of fracture nor prominent joint effusion. There are mild degenerative changes i n the medial and lateral compartments some degenerative changes also evident patellofemoral. Osteoph ytic density consistent with probably avulsion seen at the tip of the lateral tibial spine. Signatur e IMPRESSION: DATA REPOSITORY: RADIATION DOSE DELIVERED:
== END 2021-03-05 10:35 | disposition home or self-care (01) ==
LOC: DIORS 10:34
PROVIDERS: PCP Internal Medicine; Referring Provider Internal Medicine; Visit Provider Student in an Organized Health Care Education/Training Program
DX: M25.562 Pain in left knee (principal); Z96.641 Presence of right artificial hip joint; Z47.1 Aftercare following joint replacement surgery; M17.12 Unilateral primary osteoarthritis, left knee
CPT/HCPCS: 73562; 99213; 73502

== ENCOUNTER 2021-12-07 00:14 | Outpatient (CLI) | payer MEDICARE, SELFPAY ==
--- NOTE | 2021-12-07 10:30 | DI.US_ITS ---
APPROVED REPORT EXAM: Comprehensive 2D, Doppler, and color-flow Echocardiogram Patient Location: Out-Patient Nascar Racer: Betsy Shin RDCS (AE) Indications: Aortic stenosis Other Information Study Quality: Adequate Conclusion Normal left ventricular wall thickness and chamber size. Estimated ejection fraction is 55 to 60%. Wall motion is normal Normal right ventricular size and systolic function Both atria are normal in size Aortic valve is sclerotic and probably trileaflet. There is moderate aortic stenosis. Peak gradient is 38, mean 23 mmHg. Calculated aortic valve area 0.98 cm?? Mild mitral annular calcification. Trace mitral regurgitation Normal tricuspid valve with trace regurgitation. Estimated right ventricular systolic pressure is 27 mmHg Ascending aorta is normal in size Wall motion Left Ventricle The left ventricle is normal size. The left ventricular systolic function is normal. The left ventric ular ejection fraction is within the normal range. There is normal left ventricular wall thickness. T here is normal LV segmental wall motion. There is no ventricular septal defect visualized. LVEF is 56 %. Right Ventricle Right ventricle is grossly normal in size. Right ventricular systolic function is grossly normal. The RVSP is 26.9 mmHg. Atria The left atrium size is normal. The right atrium size is normal. The interatrial septum is intact wit h no evidence for an atrial septal defect. Aortic Valve Aortic valve is calcified. Aortic valve is probably trileaflet. Moderate aortic stenosis. Peak aortic valve gradient is38.3_mmHg. Highest mean aortic valve gradient is 23.4mmHg. Calculated [place] by the co ntinuity equation is .98cm2. Trace to mild aortic regurgitation. Mitral Valve Mild mitral annular calcification. No evidence of mitral valve stenosis. Trace mitral regurgitation. Tricuspid Valve The tricuspid valve is normal in structure. There is no tricuspid valve stenosis. Trace tricuspid reg urgitation. Pulmonic Valve The pulmonary valve is normal in structure. There is no pulmonic valvular stenosis. Trace to mild pul norris regurgitation. Great Vessels The aortic root is normal in size. The ascending aorta is normal in size. Aortic arch is not well vis ualized. IVC is normal in size and collapses >50% with inspiration. Pericardium There is no pericardial effusion. 2D Dimensions IVSD d PLAX 0.82 cm M: 0.6-1.2 LV Vol A2C d MOD 113.8 mL LVPW d PLAX 0.82 cm M: 0.6 - 1.2 LV Vol A4C d MOD 97.8 mL LVID d PLAX 3.90 cm M: 4.2 - 5.8 LA vol/ BSA A2C s A-L 37.6 mL/m2 LVDs 2.75 cm M: 2.5 - 4.0 LA vol/ BSA A4C s A-L 27.2 mL/m2 Ao Root d 3.08 cm M: 3.1 - 3.7 LA Vol/ BSA Biplane s A-L 32.0 mL/m2 RA Area A4C 13.63 cm2 LA Area A4C s MOD 18.11 cm2 RA Vol/ BSA A4C s A-L 17.6 mL/m2 LA Area A2C s MOD 21.32 cm2 Ao Asc Diam d 3.26 cm M: 2.6 - 3.4 LV EF A4C MOD 57.8 % LV EF Teichholz 55.8 % LV EF A2C MOD 55.0 % LVEF (Fernandes's) 58.23 % M: 52 - 72 LV EF Biplane MOD 58.2 % LV Volume 85.65 mL M: 62 - 150 SV 64.16 mL LV Volume Index 47.58 mL/m2 M: 34 - 74 SV Index 35.59 mL/m2 LV Vol Biplane MOD 110.2 mL FS 28.60 % M-Mode TAPSE 1.51 cm (M/F) >1.7 LV Diastology MV E' medial 0.081 (>0.07 m/s) E/A Ratio 0.8 LV E/e MED 7.05 (<14) MV E Vmax 0.57 (0.4-1.3 m/s) MV E' lateral 0.078 (>0.1 m/s) MV A Vmax 0.75 (0.4-1.3 m/s) LV E/e LAT 7.30 (<14) MV E/A Ratio 0.75 MV E/E' medial 7.08 MV E/E' lateral 7.31 Aortic Valve LVOT Area 3.41 cm2 AoV Area Vmax 0.98 cm2 LVOT Vmax 0.89 m/s AoV Area/ BSA (Vmax) 0.54 cm2/m2 LVOT Mean Kiran. 0.55 m/s [place] Mean Kiran. 0.81 cm2 LVOT Peak Grad 3.1 mmHg [place] Mean Kiran. Index 0.45 cm2/m2 LVOT Mean Grad 1.5 mmHg AR DT 1099 msec LVOT VTI 0.166 m AR PHT 319 msec LVOT Diam s 2.05 cm AoV Vmax 3.09 m/s Velocity Ratio 0.28 AoV Mean Kiran. 2.32 m/s AoV Peak Grad 38.3 mmHg LVOT SV 56.64 mL AoV Mean Grad 23.4 mmHg AoV VTI 0.596 m AoV Area VTI 0.95 cm2 AoV Area/ BSA (VTI) 0.53 cm/m2 Mitral Valve MV DT 200 (160-240 msec) MV PHT 58 msec MV Area PHT 3.79 cm2 MV VTI 0.221 m MV Area VTI 2.57 (4.0-6.0 cm2) Pulmonary Valve PV Vmax 1.51 (0.5-1.5 m/s) RVOT Peak Gr. 2.03 mmHg PV Peak Grad 9.1 mmHg RVOT Mean Gr. 0.75 mmHg PV Mean Grad 3.7 mmHg RVOT VTI 0.108 m PV VTI 0.216 m RVOT Vmax 0.71 m/s Tricuspid Valve TR Peak Grad 23.9 mmHg TR Vmax 2.44 m/s RA Pressure 3.00 mmHg RVSP (TR) 26.9 mmHg
== END 2021-12-07 00:34 ==
PROVIDERS: PCP Family Medicine; Visit Provider Family Medicine
DX: I35.0 Nonrheumatic aortic (valve) stenosis (principal)
CPT/HCPCS: 93306

== ENCOUNTER 2022-04-05 15:45 | Outpatient (REF) | payer MEDICARE, SELFPAY ==
[2022-04-05 19:22] LABS: HCT 41.7 % (40.0-50.0); HGB 13.8 g/dL (13.5-17.5); MCH 32.2 pg (27.0-33.0); MCHC 33.1 % (32.0-36.0); MCV 97 fL (80-95); MPV 9.7 fL (8.0-11.0); Platelet Count 122 10^3/uL (130-400); RBC 4.28 10^6/uL (4.36-5.78); RDW 12.5 % (11.8-14.1); RDW-SD 44.7 fL; WBC 5.96 10^3/uL (4.4-10.8)
[2022-04-05 19:52] LABS: Hemoglobin A1C 5.8 % (<5.7)
[2022-04-05 20:06] LABS: Anion Gap 9.9 mmol/L (3-11); BUN 18 mg/dL (7-18); CO2 28.1 mmol/L (21.0-32.0); CREATININE 1.1 mg/dL (0.70-1.30); Calcium 8.5 mg/dL (8.5-10.1); Chloride 103 mmol/L (98-107); Glucose 104 mg/dL (74-106); Potassium 3.9 mmol/L (3.5-5.1); Sodium 141 mmol/L (136-145); TSH 2.86 uIU/mL (0.36-3.74); Vitamin B12 444 pg/mL (193-986)
== END 2022-04-05 15:46 | disposition home or self-care (01) ==
LOC: NCHCN 15:45
PROVIDERS: PCP Family Medicine; Visit Provider Family Medicine
DX: I35.0 Nonrheumatic aortic (valve) stenosis (principal); Z86.79 Personal history of other diseases of the circulatory system; E03.9 Hypothyroidism, unspecified; R73.09 Other abnormal glucose; R41.9 Unspecified symptoms and signs involving cognitive functions and awareness; D64.9 Anemia, unspecified
CPT/HCPCS: 80048; 85027; 82607; 83036; 84443

== ENCOUNTER 2023-10-28 21:18 | Outpatient (REF) | payer MEDICARE, SELFPAY ==
[2023-10-28 20:46] LABS: HCT 42.2 % (40.0-50.0); HGB 13.6 g/dL (13.5-17.5); MCH 31.7 pg (27.0-33.0); MCHC 32.2 % (32.0-36.0); MCV 98 fL (80-95); MPV 9.4 fL (8.0-11.0); Platelet Count 136 10^3/uL (130-400); RBC 4.29 10^6/uL (4.36-5.78); RDW 12.4 % (11.8-14.1); RDW-SD 44.8 fL; WBC 6.21 10^3/uL (4.4-10.8)
[2023-10-28 21:04] LABS: ALT 34 U/L (16-63); AST 30 U/L (15-37); Albumin 3.8 g/dL (3.4-5.0); Alkaline Phosphatase 69 U/L (46-116); Anion Gap 8.1 mmol/L (3-11); BUN 20 mg/dL (7-18); Bilirubin, Total 0.6 mg/dL (0.2-1.0); CO2 30.9 mmol/L (21.0-32.0); CREATININE 1.2 mg/dL (0.70-1.30); Calcium 8.9 mg/dL (8.5-10.1); Chloride 102 mmol/L (98-107); Estimated GFR 59.26 (mL/min/1.73m2); Glucose 104 mg/dL (74-106); Sodium 141 mmol/L (136-145); TSH (W/Ref FT4) 3.16 uIU/mL (0.36-3.74); Total Protein 7.7 g/dL (6.4-8.2)
[2023-10-28 21:10] LABS: Hemoglobin A1C 5.7 % (<5.7)
== END 2023-10-28 21:19 | disposition home or self-care (01) ==
LOC: NCHCN 21:18
PROVIDERS: PCP Family Medicine; Visit Provider Family Medicine
DX: E11.9 Type 2 diabetes mellitus without complications (principal); E03.9 Hypothyroidism, unspecified
CPT/HCPCS: 80053; 85027; 83036; 84443

== ENCOUNTER → 2024-01-29 12:47 | Outpatient (BNVA) | payer MEDICARE, SELFPAY | PROVIDERS: PCP Family Medicine; Referring Provider Family Medicine; Visit Provider Student in an Organized Health Care Education/Training Program | DX: J84.112 Idiopathic pulmonary fibrosis (principal); Z87.891 Personal history of nicotine dependence; I35.0 Nonrheumatic aortic (valve) stenosis; J96.91 Respiratory failure, unspecified with hypoxia | CPT/HCPCS: 94618; 99215 ==

== ENCOUNTER → 2024-06-09 11:20 | Outpatient (BNVA) | payer MEDICARE, SELFPAY | PROVIDERS: PCP Family Medicine; Referring Provider Family Medicine; Visit Provider Physician Assistant Surgical | DX: J84.112 Idiopathic pulmonary fibrosis (principal); J96.91 Respiratory failure, unspecified with hypoxia | CPT/HCPCS: 94618; 99215 ==

== ENCOUNTER 2024-06-24 02:12 | Outpatient (CLI) | payer MEDICARE, SELFPAY ==
--- NOTE | 2024-06-24 13:08 | DI.CT_ITS ---
Exam(s) CT CHEST WO EXAM: CT CHEST WO CLINICAL HISTORY: f/u pericardial effusion and thickening, worsening dyspnea,idiopathic. TECHNIQUE: Imaging protocol: Axial computed tomography images were obtained and coronal and sagittal reformatted images were created and reviewed. Computer aided detection (CAD) was utilized. COMPARISON: CT CHEST FOR PULMONARY EMBOLUS from 06/01/2017 CR XR PORTABLE CHEST AP from 02/07/2021 FINDINGS: Tracheobronchial tree: Patent where visualized. There is extensive bronchiectasis predominantly invol ving the upper lobes and right middle lobe. No mucous plugging. Pulmonary parenchyma: No consolidation or dominant measurable mass. There is diffuse interstitial thi ckening predominantly peripherally and involving the upper lobes with associated peripheral cystic ch anges. The findings have significantly progressed since examination from 06/01/2017. There is loss of volume of the upper lobes bilaterally. No focal consolidating infiltrates are present. Mediastinum and [place]: No dominant adenopathy or fluid collection. The esophagus is unremarkable.There is a small hiatal hernia. Thyroid gland: Unremarkable. Pleura: No effusion or pneumothorax. Heart: The heart is not dilated. Three vessel coronary artery calcification is present. There is an aortic valve replacement. No pericardial effusion. Aorta: Thoracic aorta non-dilated. Atherosclerotic calcification is present. Upper abdomen: Unremarkable. Lymph nodes: Within normal limits. Soft tissues: Unremarkable. Bones:Within normal limits for the patient's age. IMPRESSION: 1. Marked progression of the pulmonary fibrotic changes in the lungs with volume loss and bronchiecta sis predominantly involving the upper lobes bilaterally. 2. No pleural effusion. RADIATION DOSE DELIVERED: 492.13mGy.cm Total DLP 492.13mGy.cm Total DLP DATA REPOSITORY: All CT scans at this facility are submitted to the National Radiology Data Registry (NRDR) Dose Index Registry (DIR) with the [employer] (ACR). RADIATION OPTIMIZATION: All CT scans at this facility use at least one of these dose optimization te chniques: automated exposure control; mA and/or kV adjustment per patient size (includes targeted exa ms where dose is matched to clinical indication); or iterative reconstruction.
== END 2024-06-24 02:32 ==
LOC: DI 02:13
PROVIDERS: PCP Family Medicine; Visit Provider Physician Assistant Surgical
DX: J84.112 Idiopathic pulmonary fibrosis (principal)
CPT/HCPCS: 71250

== ENCOUNTER → 2024-07-05 13:13 | Outpatient (BNVA) | payer MEDICARE, SELFPAY | PROVIDERS: PCP Family Medicine; Referring Provider Family Medicine; Visit Provider Physician Assistant Surgical | DX: J96.91 Respiratory failure, unspecified with hypoxia (principal); J84.112 Idiopathic pulmonary fibrosis; I73.89 Other specified peripheral vascular diseases; B35.1 Tinea unguium; L60.3 Nail dystrophy; L84 Corns and callosities; M79.671 Pain in right foot; M79.672 Pain in left foot; R25.2 Cramp and spasm; L65.9 Nonscarring hair loss, unspecified; R23.8 Other skin changes; L60.8 Other nail disorders | CPT/HCPCS: 11719; 11720; 99214; 99215 ==

== ENCOUNTER 2024-07-10 18:59 | Observation (INO) | payer MEDICARE, SELFPAY ==
[2024-07-10] VITALS (27 sets, daily range): BP systolic 130–158; BP diastolic 71–86; PULSE 81–97; RESP 18–27; TEMP 36.6–36.7; O2SAT 92–100
--- NOTE | 2024-07-10 18:45 | DI.CT_ITS ---
Exam(s) CT BRAIN NECK CTA EXAM: CT BRAIN NECK CTA CLINICAL HISTORY: TIA. TECHNIQUE: Imaging Protocol: Axial CT angiography was performed with multi-slice acquisition and mu lti-planar and/or 3D reconstructions. CONTRAST MATERIAL: Intravenous: Omnipaque 350 Contrast volume:structured data in ml COMPARISON: CT HEAD AND CSPINE W/O CONTRAST from 03/18/2016 FINDINGS: CTA Neck W: Aortic arch anatomy: There is moderate stenosis as at the origin of the right common carotid artery o ff of the brachiocephalic trunk. No significant stenosis proximal to this level. Above this level b oth common carotid arteries ascend with normal luminal diameters. However, there is heavily calcifie d plaque at the carotid bifurcations and proximal ICAs with approximately 50-69 percent stenosis at t he origin the right ICA and more severe stenosis on the left side estimated approximately 70-99 perce nt on the left. Both internal carotid arteries in the upper neck are nicely patent as well as in the skull base-carotid canals. Posterior circulation: There is mild stenosis at the origin of the right vertebral artery. No significant stenosis at the o rigin the left vertebral artery. The right vertebral artery is dominant and ascends within the foramen transverse area with luminal di ameter of 4-5 mm. The left vertebral artery exhibits a thinner diameter of 2.5 mm. There is no diss ection nor intraluminal thrombus. At the skull base both vertebral arteries contribute to the format ion of the basilar artery CTA Brain W: Anterior circulation: Both internal carotid arteries are patent in the skull base-carotid canals as well as within the cave rnous sinuses. There is circumferential mural calcification within the intra cavernous internal beadren tid arteries but no significant stenosis. Supraclinoid aspects of the ICAs are patent. The right A1 segment is dominant. Both anterior cerebr al arteries are patent as is the anterior communicating artery and there is no evidence of aneurysm a t the level the anterior communicating artery. Both middle cerebral arteries are patent with no evidence of significant stenosis nor intraluminal th rombus. There also no aneurysms of these vessels. Posterior circulation: Basilar artery is formed by both vertebral arteries at the skull base. It ascends without significan t stenosis. Distally it gives off superior cerebellar arteries and above this level terminates as pa tent right posterior cerebral artery. The left posterior cerebral artery is predominantly fed by a p osterior communicating artery on the left side of the [id number]. There is no evidence of aneurysm at the tip of the basilar artery nor elsewhere in the [id number] is. CT BRAIN: There is no evidence of intracranial hemorrhage, mass effect, or shift of midline structures. There are no extra-axial fluid collections. Ventricles are not enlarged or shifted. There are no ring enh ancing lesions in the brain and no abnormal meningeal enhancement. Mild bilateral periventricular hypodensity noted consistent with chronic small vessel disease. IMPRESSION: 1. There is significant atherosclerotic disease at the level the carotid bifurcations and proximal IC As on both sides the neck. This is more prominent on left side with estimated stenosis of 70-99 perc ent on the left and 50-69 percent stenosis on the right. 2. Right vertebral artery is dominant. Both vertebral arteries contribute to the formation of the b asilar artery at the skull base. 3. Patent intracranial arteries. 4. No acute intracranial findings. Chronic small-vessel white matter ischemic changes evident. First read by [facility] RADIATION DOSE DELIVERED: 2,028.3mGy.cm Total DLP DATA REPOSITORY: All CT scans at this facility are submitted to the National Radiology Data Registry (NRDR) Dose Index Registry (DIR) with the [employer] (ACR). RADIATION OPTIMIZATION: All CT scans at this facility use at least one of these dose optimization te chniques: automated exposure control; mA and/or kV adjustment per patient size (includes targeted exa ms where dose is matched to clinical indication); or iterative reconstruction.
--- NOTE | 2024-07-10 18:45 | RT.EKG_ITS ---
APPROVED REPORT Exam: Resting ECG Reason for Exam: right arm pain Patient Location: E HR:94 bpm ECG Measurements Heart Rate 94 AXIS DC 184 P 43 QRSd 92 QRS 65 QT 351 T -3 QTc 439 Conclusion Sinus rhythm 94 normal axis no stemi
--- NOTE | 2024-07-10 19:05 | W.ED.GENAD ---
Discharge Plan Disposition Patient Disposition: Admit to [facility] Condition: Fair Discharge Details Chief Complaint: CVA/TIA Clinical Impression: TIA (transient ischemic attack), Vomiting Admit Date/Time: 07/10/24 20:42 Admit Provider: Rick Monahan Attending Provider: Rick Monahan Primary Care Provider: Rosalio Ibarra ED Provider: Teresita Blandon HPI General Date/Time Provider Initiated Documentation: 07/10/24 18:59. Limitations to Documentation: no limitations. Information obtained by: patient and EMS. HPI Narrative: 84-year-old gentleman with past medical history of PVD, PAD, IPF (oxygen dependent) presents for evaluation of acute right-sided weakness. Patient reports that he was sitting eating dinner when abruptly his right side felt heavy, weak and numb. Difficulty using his right arm. EMS reports that by the time they arrived symptoms had completely resolved. Patient reports that he feels much better right now. He denies any difficulty with speech. Reports that the numbness has resolved. States that he has been in his baseline state of health which is not great.. Over the last few months has had progressive decline with his dementia and pulmonary disease. Related Data Home Medications ?Medication ?Instructions ?Recorded ?Confirmed acetaminophen 325 mg tablet 325 mg PO PRN 04/11/17 07/10/24 (Tylenol) aspirin 81 mg chewable tablet 81 mg PO DAILY 04/11/17 07/10/24 levothyroxine 100 mcg tablet 100 mcg PO DAILY 02/07/21 07/10/24 latanoprost 0.005 % eye drops 1 drp ophthalmic (eye) QPM 05/16/21 07/10/24 dorzolamide (PF) 2 % (PF) eye drops 1 drp ophthalmic (eye) BID 11/01/21 07/10/24 ketoconazole 2 % topical cream 1 applic topical DAILY #120 grams 07/05/24 07/10/24 Previous Rx's ?Medication ?Instructions ?Recorded ketoconazole 2 % topical cream 1 applic topical DAILY #120 grams 07/05/24 Allergies Allergy/AdvReac Type Severity Reaction Status Date / Time bimatoprost (From Lumigan) Allergy Unknown increased Verified 07/10/24 19:15 eye pressure methotrexate Allergy Skin Rash Verified 07/10/24 19:15 Sulfa (Sulfonamide Allergy flu like Verified 07/10/24 19:15 Antibiotics) sx, rash head to toe, abn gait timolol AdvReac Unknown increased Verified 07/10/24 19:15 blood pressure General Stated Complaint: CVA/TIA YOHANA: 3 Exam Narrative Exam Narrative: Review of Systems: All systems reviewed & are unremarkable except as noted in HPI and below Cachectic, frail-appearing, chronically ill-appearing NCAT Hearing aids bilaterally PERRL, normal conjunctiva No nystagmus No facial asymmetry No murmur Unlabored respiratory effort, on 3 L nasal cannula Nondistended abdomen soft nontender Lower extremities with chronic venous stasis hyperpigmentation No focal neurodeficits, no facial asymmetry, speech clear, mentation appropriate, sensation and strength intact throughout Course Vital Signs Vital signs: Vital Signs Temperature 36.7 C 07/10/24 18:58 Pulse 97 H 07/10/24 18:58 Respiratory Rate 18 07/10/24 18:58 Blood Pressure 139/78 07/10/24 18:58 Pulse Oximetry 99 07/10/24 18:58 Temperature 36.7 C 07/10/24 18:58 Temperature Source Oral 07/10/24 18:58 Pulse 97 H 07/10/24 18:58 Respiratory Rate 18 07/10/24 18:58 Blood Pressure 139/78 07/10/24 18:58 Blood Pressure Position Sitting 07/10/24 18:58 Pulse Oximetry 99 07/10/24 18:58 Oxygen Delivery Method Nasal Cannula 07/10/24 18:58 Oxygen Flow Rate 3 07/10/24 18:58 Pain Level 0 07/10/24 18:58 Medical Decision Making Emergent evaluation of acute onset right-sided weakness. Symptoms resolved spontaneously after about 15 minutes. Initial concern for TIA, less likely seizure or syncope. At this time the patient has a nonfocal neurologic exam and therefore is not an acute stroke code. EKG reviewed and independently interpreted: Sinus [address] no acute ST segment changes. Patient does have significant risk factors for CVA. Will check blood work and get CT imaging of the brain. Lab work reviewed. The white blood cell count is not elevated. Hemoglobin does show a slight decrease from October. Not low enough to require a transfusion. His CMP does not demonstrate derangement. His troponins are not elevated. His urinalysis is not infected and he does not have any abnormality on his drug screen. I discussed the CTA with the radiologist, Nikunj alex, and there is not an acute stroke process. On reevaluation of the patient, he has not had recurrence of his right-sided weakness or numbness. The is at bedside and reports that he seems to have had a significant decline in his overall status over the week. He has been vomiting whenever he eats. She denies that there was any episode of choking or vomiting this evening when the event occurred. She states that she is also had an increase in his oxygen requirement particularly with any kind of exertion like showering. Given his multiple medical comorbidities and high risk factors, will admit for TIA evaluation and medical optimization. Sounds like patient would also benefit from a speech evaluation given his difficulty with eating. He is followed by palliative care. He desires to be DNR. Quality:SDOH Health Related Social Needs: No Data to Display PFSH All Active Problems (Updated 07/10/24 @ 23:25 by Teresita Blandon MD) Vomiting (Acute) TIA (transient ischemic attack) (Acute) Chronic respiratory failure (Acute) TIA (transient ischemic attack) (Acute) Pain in both feet (Acute) Corns and callosities (Acute) Nail dystrophy (Acute) Onychomycosis (Acute) PAD (peripheral artery disease) (Acute) PVD (peripheral vascular disease) (Chronic) History of fracture of left ankle (Acute) Advanced care planning/counseling discussion (Acute) Palliative care encounter (Acute) History of bioprosthetic transcatheter aortic valve implantation (MP) (Acute) Respiratory failure with hypoxia (Acute) Severe aortic stenosis (Acute) Former cigarette smoker (Acute) IPF (idiopathic pulmonary fibrosis) (Acute) Allergic rhinitis (Acute) Vasculitis (Acute) Thoracic vertebral fracture (Acute) Cervical vertebral fracture (Acute) Actinic keratosis (Acute) Impairment of speech discrimination (Acute) Dysfunction of both eustachian tubes (Acute) Sensorineural hearing loss (SNHL) of both ears (Acute) Stasis dermatitis (Acute) Dupuytren's contracture (Acute) Glaucoma (Chronic) Atrial flutter (Acute) Left knee DJD (Acute) Cough (Acute) Conductive hearing loss of right ear with restricted hearing of left ear (Acute) Sensorineural hearing loss of combined sites, bilateral (Acute) History of serous otitis media (Acute) Tendonitis of left rotator cuff (Acute 12/01/15) Right rotator cuff tendinitis (Acute 01/31/16) Primary osteoarthritis of right knee (Acute 12/01/15) Primary osteoarthritis of right hip (Acute 12/01/15) Surgical History H/O ankle fusion Hx of local excision of skin lesion History of right hip replacement 2018 History of cataract surgery Family History Father , 59 Heart disease heart failure Hypertension Myocardial infarction Mother , 70 Heart disease Sister Breast cancer Sister COPD (chronic obstructive pulmonary disease) Emphysema, unspecified Brother MVA (motor vehicle accident) Brother Heart disease Cancer prostate cancer Hypertension Daughter Thyroid disorder Hypertension Social History Smoking/Tobacco Use Status: Former Tobacco Use tobacco type: cigarettes Pack-years: 15 Tobacco: How many years used: 39 Smoking risk assessment performed?: Yes Alcohol Intake: never Drug use: Never Housing: assisted living facility Do you feel safe at home: Yes Do you feel safe in your relationship?: Yes
[2024-07-10] MEDS: Normal Saline - Diluent 50 ML VIAL IJ (19:13)
[2024-07-10] MEDS: Omnipaque 350 MG/ML 100 ML BTL IJ (19:14)
[2024-07-10 19:18] LABS: INR 1.2 (0.9-1.1); Prothrombin Time 11.6 sec (9.1-11.1)
[2024-07-10 19:26] LABS: ALT 25 U/L (16-63); AST 23 U/L (15-37); Albumin 3.3 g/dL (3.4-5.0); Alkaline Phosphatase 75 U/L (46-116); Anion Gap 4.2 mmol/L (3-11); BUN 16 mg/dL (7-18); Bilirubin, Total 0.57 mg/dL (0.2-1.0); CO2 34.8 mmol/L (21.0-32.0); CREATININE 1.2 mg/dL (0.70-1.30); Calcium 8.9 mg/dL (8.5-10.1); Chloride 97 mmol/L (98-107); Estimated GFR 58.89 (mL/min/1.73m2); Glucose 176 mg/dL (74-106); Potassium 4.4 mmol/L (3.5-5.1); Sodium 136 mmol/L (136-145); Total Protein 8.5 g/dL (6.4-8.2); Troponin I 18 ng/L (<or=76)
[2024-07-10 19:41] LABS: Abs Immature Grans 0.03 10^3/uL (0.0-0.06); Absolute Basophil Count 0.03 10^3/uL (0.0-0.2); Absolute Eosinophil Count 0.27 10^3/uL (0.0-0.7); Absolute Monocyte Count 0.68 10^3/uL (0.1-0.8); Absolute Neutrophil Count 3.67 10^3/uL (1.2-6.7); Basophils % 0.5 %; Eosinophils % 4.7 %; HCT 31.7 % (40.0-50.0); HGB 10.2 g/dL (13.5-17.5); Immature Grans % 0.5 %; MCH 31.7 pg (27.0-33.0); MCV 98 fL (80-95); Monocytes % 11.8 %; Neutrophils % 63.5 %; RBC 3.22 10^6/uL (4.36-5.78); RDW 12.3 % (11.8-14.1); RDW-SD 44.4 fL; WBC 5.78 10^3/uL (4.4-10.8)
[2024-07-10 19:54] LABS: Platelet Count 82 10^3/uL (130-400)
[2024-07-10 19:55] LABS: MCHC 32.2 % (32.0-36.0)
--- NOTE | 2024-07-10 20:04 | DI.VRAD_ITS ---
Addendum created by Truman Malagon MD on 07/10/2024 8:04:14 PM EST: THIS REPORT CONTAINS FINDINGS THAT MAY BE CRITICAL TO PATIENT CARE. The findings were verbally communicated via telephone conference with JEANNIE GOODWIN at 8:04 PM EST on 07/10/2024. The findings were acknowledged and understood. Initial report created on 07/10/2024 8:02:46 PM EST: PROCEDURE INFORMATION: Exam: CTA Head Without And With Contrast, Arteriography Exam date and time: 07/10/2024 7:11 PM Age: 84 years old Clinical indication: Stroke-like symptoms; RT upper extremity and RT lower extremity weakness TECHNIQUE: Imaging protocol: Computed tomographic angiography of the head without and with contrast. Exam focused on the arteries. 3D rendering (Not supervised by radiologist): MIP and/or 3D reconstructed images were created by the technologist. Radiation optimization: All CT scans at this facility use at least one of these dose optimization techniques: automated exposure control; mA and/or kV adjustment per patient size (includes targeted exams where dose is matched to clinical indication); or iterative reconstruction. Contrast material: [id number]; Contrast volume: 70 ml; Contrast route: INTRAVENOUS (IV); Other technique: STROKE PROTOCOL was implemented. COMPARISON: No relevant prior studies available. FINDINGS: ANTERIOR CIRCULATION: Right internal carotid artery: Intracranial segment is patent with no significant stenosis or occlusion. No aneurysm. Right middle cerebral artery: No occlusion or significant stenosis. No aneurysm. Right anterior cerebral artery: No occlusion or significant stenosis. No aneurysm. Left internal carotid artery: Intracranial segment is patent with no significant stenosis. No aneurysm. Left middle cerebral artery: No occlusion or significant stenosis. No aneurysm. 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 No aneurysm. POSTERIOR CIRCULATION: Right vertebral artery: No occlusion or significant stenosis. No aneurysm. Left vertebral artery: No occlusion or significant stenosis. No aneurysm. Basilar artery: No occlusion or significant stenosis. No aneurysm. Right posterior cerebral artery: No occlusion or significant stenosis. No aneurysm. Left posterior cerebral artery: origin of the left posterior cerebral artery is a common developmental variant and there is no occlusion or significant stenosis. No aneurysm. HEAD: Brain: Mild atrophy and probable underlying microvascular ischemic changes with no acute transcortical infarction or recent intracranial hemorrhage detected.. Cerebral ventricles: No midline shift or hydrocephalus. Bones: No acute fracture. Paranasal sinuses: Soft tissue layers along the posterior sphenoid sinus with other paranasal sinuses clear throughout. Mastoid air cells: Grossly clear bilaterally. Soft tissues: Unremarkable. IMPRESSION: 1. 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 No aneurysm. 2. No large vessel stenosis or occlusion detected involving the remaining major branches of the anterior or posterior intracranial circulation. 3. Cerebral atrophy and probable underlying microvascular ischemic changes with no acute transcortical infarction or recent intracranial hemorrhage detected. ASSESSMENT: ASPECTS ([facility] Stroke Program Early CT Score) is 10. PROCEDURE INFORMATION: Exam: CTA Neck Without And With Contrast Exam date and time: 07/10/2024 7:11 PM Age: 84 years old Clinical indication: Stroke-like symptoms; RT upper extremity and RT lower extremity weakness TECHNIQUE: Imaging protocol: Computed tomographic angiography of the neck without and with contrast. Exam focused on the cervical segments of the vasculature. 3D rendering (Not supervised by radiologist): MIP and/or 3D reconstructed images were created by the technologist. Radiation optimization: All CT scans at this facility use at least one of these dose optimization techniques: automated exposure control; mA and/or kV adjustment per patient size (includes targeted exams where dose is matched to clinical indication); or iterative reconstruction. Contrast material: [id number]; Contrast volume: 70 ml; Contrast route: INTRAVENOUS (IV); COMPARISON: CT CHEST WO 06/24/2024 1:03 PM FINDINGS: Right common carotid artery: No stenosis. No dissection or occlusion. Right internal carotid artery: Atherosclerotic calcifications are seen at the right carotid bifurcation and involving the origin of the right internal carotid artery with moderate focal stenosis seen at the origin of the right internal carotid artery. There is no evidence of 50% or greater stenosis seen involving the remainder of the extracranial segment of the right ICA. No dissection or occlusion. Right external carotid artery: No occlusion or stenosis of the origin. Left common carotid artery: No stenosis. No dissection or occlusion. Left internal carotid artery: Atherosclerotic calcifications are seen at the left carotid bifurcation and involving the origin and proximal segment of the left internal carotid artery with severe focal stenosis involving the proximal left internal carotid artery just distal to the bifurcation. There is no evidence of 50% or greater stenosis seen involving the remainder of the extracranial segment of the left ICA. No dissection or occlusion. Left external carotid artery: No occlusion or stenosis of the origin. Right vertebral artery: No stenosis. No dissection or occlusion. Left vertebral artery: No stenosis. No dissection or occlusion. Soft tissues: Normal. No significant soft tissue swelling. Bones/joints: No acute fracture. IMPRESSION: 1. Atherosclerotic calcifications are seen at the right carotid bifurcation and involving the origin of the right internal carotid artery with moderate focal stenosis seen at the origin of the right internal carotid artery, estimated to be in the range of 50-69% by NASCET criteria. There is no evidence of 50% or greater stenosis seen involving the remainder of the extracranial segment of the right ICA. 2. Atherosclerotic calcifications are seen at the left carotid bifurcation and involving the origin and proximal segment of the left internal carotid artery with severe focal stenosis involving the proximal left internal carotid artery just distal to the bifurcation, estimated to be in the range of 70-99% by NASCET criteria. There is no evidence of 50% or greater stenosis seen involving the remainder of the extracranial segment of the left ICA. REFERENCES: NASCET CRITERIA. The degree of stenosis in the cervical segment of the internal carotid artery is based on NASCET criteria. Normal is no stenosis. Mild is less than 50% stenosis. Moderate is 50-69% stenosis. Severe is 70% to 99% stenosis. Total occlusion is no detectable patent lumen. Dictated and Authenticated by: Truman Malagon MD. Ordering:[facility] Barber Burleson MD
--- NOTE | 2024-07-10 20:42 | HPE_ITS ---
Date of service: 07/10/24 Time of Service: 20:42 Assessment and Plan Assessment and plan (1) TIA (transient ischemic attack): Status: Acute Assessment and plan: - Patient initially described right sided weakness and numbness particularly in his arm that resolved by the time EMS arrived -However, patient's stated more of a global like weakness and inability to speak which she had had resolved by EMSs arrival -Patient had a CT angio head and neck that was without acute findings -Ordered MRI and echocardiogram which will not be done until 07/12/2024 -Also ordered speech consultation -Continue aspirin, started high-dose statin (2) PAD (peripheral artery disease): Status: Acute Assessment and plan: - Continue home medication regimen (3) PVD (peripheral vascular disease): Status: Chronic Assessment and plan: - Continue home medication regimen (4) Chronic respiratory failure: Status: Acute Assessment and plan: - Secondary to IPF -Reportedly requires admitted from 3 to 4 L nasal cannula -Apparently has also been attempting to get different oxygen delivery system as patient has been requiring increased amounts of oxygen with ambulation -Goal oxygen saturation 88 to 92% (5) IPF (idiopathic pulmonary fibrosis): Status: Acute Assessment and plan: - As noted above History of Present Illness History of Present Illness Chief Complaint: right sided weakness Narrative: 84-year-old gentleman with past medical history of peripheral vascular disease disease, peripheral arterial disease, idiopathic pulmonary fibrosis with chronic hypoxic respiratory failure on 3 to 4 L nasal cannula who presented the emergency department with an episode of right-sided weakness. According the patient he was sitting eating dinner when he abruptly felt heavy on his right side within on the prescription weakness and numbness though he was able to sit he was unable to move his right arm. His called EMS and upon their arrival patient had returned to his baseline functional status. However, upon the arrival of the patient's she states that it appeared more of a global weakness and that he was unable to speak when she had been attempting to talk with her. He denies any headache, lightheadedness, dizziness, chest pain, nausea vomiting diarrhea or or fevers. In the emergency department the patient was noted as having a normal physical exam, normal neurologic exam, normal vital signs, as well as a normal CBC and CMP. EKG was unremarkable and a CTA head and neck showed absence of left A1 segment of the common development variant with normal caliber flow in the left anterior cerebral artery, no large vessel stenosis or occlusions, and cerebral atrophy likely due to microvascular ischemic changes with no acute findings. Additionally, patient's also reports that he has been having some overall decline over the last week from his functional baseline, and also had been trouble eating with some reports of episodes of emesis. Ultimately, given his transient right-sided weakness, emergency room physician paged hospitalist for admission for patient with suspected TIA-like symptoms who would benefit from echocardiogram, MRI, and speech consultation. Review of Systems All systems reviewed & are unremarkable except as noted in HPI and below PFSH All Active Problems (Updated 07/10/24 @ 23:25 by Teresita Blandon MD) Vomiting (Acute) TIA (transient ischemic attack) (Acute) Chronic respiratory failure (Acute) TIA (transient ischemic attack) (Acute) Pain in both feet (Acute) Corns and callosities (Acute) Nail dystrophy (Acute) Onychomycosis (Acute) PAD (peripheral artery disease) (Acute) PVD (peripheral vascular disease) (Chronic) History of fracture of left ankle (Acute) Advanced care planning/counseling discussion (Acute) Palliative care encounter (Acute) History of bioprosthetic transcatheter aortic valve implantation (MP) (Acute) Respiratory failure with hypoxia (Acute) Severe aortic stenosis (Acute) Former cigarette smoker (Acute) IPF (idiopathic pulmonary fibrosis) (Acute) Allergic rhinitis (Acute) Vasculitis (Acute) Thoracic vertebral fracture (Acute) Cervical vertebral fracture (Acute) Actinic keratosis (Acute) Impairment of speech discrimination (Acute) Dysfunction of both eustachian tubes (Acute) Sensorineural hearing loss (SNHL) of both ears (Acute) Stasis dermatitis (Acute) Dupuytren's contracture (Acute) Glaucoma (Chronic) Atrial flutter (Acute) Left knee DJD (Acute) Cough (Acute) Conductive hearing loss of right ear with restricted hearing of left ear (Acute) Sensorineural hearing loss of combined sites, bilateral (Acute) History of serous otitis media (Acute) Tendonitis of left rotator cuff (Acute 12/01/15) Right rotator cuff tendinitis (Acute 01/31/16) Primary osteoarthritis of right knee (Acute 12/01/15) Primary osteoarthritis of right hip (Acute 12/01/15) Surgical History H/O ankle fusion Hx of local excision of skin lesion History of right hip replacement 2018 History of cataract surgery Family History Father , 59 Heart disease heart failure Hypertension Myocardial infarction Mother , 70 Heart disease Sister Breast cancer Sister COPD (chronic obstructive pulmonary disease) Emphysema, unspecified Brother MVA (motor vehicle accident) Brother Heart disease Cancer prostate cancer Hypertension Daughter Thyroid disorder Hypertension Social History Smoking/Tobacco Use Status: Former Tobacco Use tobacco type: cigarettes Pack- years: 15 Tobacco: How many years used: 39 Smoking risk assessment performed?: Yes Alcohol Intake: never Drug use: Never Housing: assisted living facility Do you feel safe at home: Yes Do you feel safe in your relationship?: Yes Meds Allergies and Home Medications Allergies Allergy/AdvReac Type Severity Reaction Status Date / Time bimatoprost (From Jake) Allergy Unknown increased Verified 07/10/24 19:15 eye pressure methotrexate Allergy Skin Rash Verified 07/10/24 19:15 Sulfa (Sulfonamide Allergy flu like Verified 07/10/24 19:15 Antibiotics) sx, rash head to toe, abn gait timolol AdvReac Unknown increased Verified 07/10/24 19:15 blood pressure Home Medications ?Medication ?Instructions ?Recorded ?Confirmed ?Type acetaminophen 325 mg tablet 325 mg PO PRN 04/11/17 07/10/24 History (Tylenol) aspirin 81 mg chewable tablet 81 mg PO DAILY 04/11/17 07/10/24 History levothyroxine 100 mcg tablet 100 mcg PO DAILY 02/07/21 07/10/24 History latanoprost 0.005 % eye drops 1 drp ophthalmic (eye) QPM 05/16/21 07/10/24 History dorzolamide (PF) 2 % (PF) eye drops 1 drp ophthalmic (eye) BID 11/01/21 07/10/24 History ketoconazole 2 % topical cream 1 applic topical DAILY #120 grams 07/05/24 07/10/24 Rx Exam Narrative Exam Narrative: fatigued, frail, cachectic appearing older gentleman laying in bed in no acute distress, AOx4, 2L NC in place, heart RRR, lungs with minimal diffuse course breath sounds throughout, abdomen soft, non-tender, non-distended Results Labs 07/10/24 18:59 07/10/24 18:59 Labs: Laboratory Results - last 24 hr 07/10/24 18:59 WBC 5.78 RBC 3.22 L Hgb 10.2 L Hct 31.7 L MCV 98 H MCH 31.7 MCHC 32.2 RDW 12.3 Plt Count 82 L MPV Immature Gran % 0.5 Neutrophils % 63.5 Lymphocytes % 19.0 Monocytes % 11.8 Eosinophils % 4.7 Basophils % 0.5 Nucleated RBC % 0.0 Absolute Neutrophils 3.67 Absolute Lymphocytes 1.10 L Absolute Monocytes 0.68 Absolute Eosinophils 0.27 Absolute Basophils 0.03 PT 11.6 H INR 1.2 H Sodium 136 Potassium 4.4 Chloride 97 L Carbon Dioxide 34.8 H Anion Gap 4.2 BUN 16 Creatinine 1.2 Est GFR (CKD-EPI 2020) 58.89 Glucose 176 H Calcium 8.9 Magnesium 2.0 Total Bilirubin 0.57 AST 23 ALT 25 Alkaline Phosphatase 75 Troponin I 18 Total Protein 8.5 H Albumin 3.3 L Last Vital Signs Temp 98.0 F 07/10/24 18:58 Pulse 90 07/10/24 20:16 Resp 22 07/10/24 20:20 BP 140/71 07/10/24 20:16 Pulse Ox 92 07/10/24 20:35 Time Spent Time spent with Patient: >75 minutes Time was spent: preparing to see the patient(eg.review tests), obtaining and/or reviewing separately otained hiistory, ordering medications,tests, procedures, referring, communicating with other health career technical education teacher, indepentently interpreting results, counseling the patient and care coordination
[2024-07-10 20:45] LABS: Bilirubin Negative (Negative); Blood Negative (Negative); Clarity Clear (Clear); Glucose Negative (Negative); Ketones Negative (Negative); Leukocyte Esterase Negative (Negative); Nitrite Negative (Negative); Specific Gravity 1.015 (1.005-1.025); Urobilinogen 0.2 mg/dL (Up to 0.2)
[2024-07-10 20:49] LABS: Troponin I 20 ng/L (<or=76)
[2024-07-10 21:00] LABS: *AMPHETAMINES SCREEN URINE Negative (Negative); *BARBITURATES SCREEN URINE Negative (Negative); *BENZODIAZEPINES SCREEN URINE Negative (Negative); Cannabinoids THC Negative (Negative); Cocaine Screen,Urine Negative (Negative); METHADONE URINE SCREEN Negative (Negative); OPIATES URINE SCREEN Negative (Negative); Tricyclic Antidepressants Negative (Negative)
--- NOTE | 2024-07-10 21:28 | W.PC.ACHO ---
Registration Status: Primary Language: Preferred Language: ED Information & Data Chief Complaint CVA/TIA 07/10/24 19:11 Triage Note BIBA, pt experienced about 07/10/24 18:58 15min sudden onset of R arm pain, numbness, weakness with increased confusion and delayed speech. Symptoms have now resolved. Hx afib, IPF. 20g L AC. 3L O2 bsl. No stroke history. no anticoags. BGL 187. (Last Reviewed 07/10/24 @ 19:08 by Teresita Blandon MD) H/O ankle fusion Hx of local excision of skin lesion History of right hip replacement History of cataract surgery Most Recent Vital Signs Temperature 36.7 C 07/10/24 18:58 Temperature Source Oral 07/10/24 18:58 Pulse 88 07/10/24 21:16 Pulse 90 07/10/24 20:20 Respiratory Rate 22 07/10/24 20:20 Respiratory Effort Normal, Non-Labored 07/10/24 19:09 Respiratory Depth Normal 07/10/24 19:09 Respiratory Pattern Normal 07/10/24 19:09 Blood Pressure 130/72 07/10/24 21:16 Blood Pressure Mean 92 07/10/24 21:16 Blood Pressure Position Sitting 07/10/24 18:58 Pulse Oximetry 99 07/10/24 21:20 Oxygen Delivery Method Nasal Cannula 07/10/24 18:58 Oxygen Flow Rate 3 07/10/24 18:58 Pain Level 0 07/10/24 18:58 Allergies bimatoprost (From [facility]) Allergy (Unknown, Verified 07/10/24 19:15) increased eye pressure methotrexate Allergy (Verified 07/10/24 19:15) Skin Rash Sulfa (Sulfonamide Antibiotics) Allergy (Verified 07/10/24 19:15) flu like sx, rash head to toe, abn gait Sulfamethoxazole/Trimethoprim PO 3.2.16.HE timolol Adverse Reaction (Unknown, Verified 07/10/24 19:15) increased blood pressure Precautions Isolation Standard precaution 07/10/24 19:09 Active Medications Generic Name Dose Route Start Last Admin Trade Name Freq PRN Reason Stop Dose Admin Iohexol 100 ml 07/10/24 19:15 07/10/24 19:14 Omnipaque 350 Mg/Ml 100 Ml Btl IJ 08/09/24 23:59 100 ml DIRECTED IZZY Administration Sodium Chloride 50 ml 07/10/24 19:15 07/10/24 19:13 Normal Saline - Diluent 50 Ml Vial IJ 50 ml .FOR DI USE IZZY Administration IV IV Catheter Type [Left Peripheral IV Antecubital] IV Catheter Gauge [Left 20 Antecubital] Diagnostics 07/10/24 07/10/24 07/10/24 Range/Units 21:59 20:30 20:25 WBC (4.4-10.8) 10^3/uL RBC (4.36-5.78) 10^6/uL Hgb (13.5-17.5) g/dL Hct (40.0-50.0) % MCV (80-95) fL MCH (27.0-33.0) pg MCHC (32.0-36.0) % RDW (11.8-14.1) % Plt Count (130-400) 10^3/uL MPV (8.0-11.0) fL Immature Gran % % Neutrophils % % Lymphocytes % % Monocytes % % Eosinophils % % Basophils % % Nucleated RBC % (0.0-0.3) % Absolute Neutrophils (1.2-6.7) 10^3/uL Absolute Lymphocytes (1.2-3.4) 10^3/uL Absolute Monocytes (0.1-0.8) 10^3/uL Absolute Eosinophils (0.0-0.7) 10^3/uL Absolute Basophils (0.0-0.2) 10^3/uL PT (9.1-11.1) sec INR (0.9-1.1) Sodium (136-145) mmol/L Potassium (3.5-5.1) mmol/L Chloride (98-107) mmol/L Carbon Dioxide (21.0-32.0) mmol/L Anion Gap (3-11) mmol/L BUN (7-18) mg/dL Creatinine (0.70-1.30) mg/dL Est GFR (CKD-EPI 2020) (mL/min/1.73m2) Glucose (74-106) mg/dL Calcium (8.5-10.1) mg/dL Magnesium (1.8-2.4) mg/dL Total Bilirubin (0.2-1.0) mg/dL AST (15-37) U/L ALT (16-63) U/L Alkaline Phosphatase (46-116) U/L Troponin I Cancelled 20 (<or=76) ng/L Total Protein (6.4-8.2) g/dL Albumin (3.4-5.0) g/dL Urine Color Yellow (Yellow) Urine Clarity Clear (Clear) Urine pH 7.0 (5-8) Ur Specific [place] 1.015 (1.005-1.025) Urine Protein Negative (Neg-Trace) mg/dL Urine Ketones Negative (Negative) mg/dL Urine Blood Negative (Negative) Urine Nitrite Negative (Negative) Urine Bilirubin Negative (Negative) Urine Urobilinogen 0.2 (Up to 0.2) mg/dL Ur Leukocyte Esterase Negative (Negative) Urine Glucose Negative (Negative) mg/dL Urine Opiates Screen Negative (Negative) Urine Methadone Screen Negative (Negative) Ur Barbiturates Screen Negative (Negative) Ur Tricyclics Screen Negative (Negative) Ur Amphetamines Screen Negative (Negative) U Benzodiazepines Scrn Negative (Negative) Urine Cocaine Screen Negative (Negative) Ur THC Screen Negative (Negative) 07/10/24 Range/Units 18:59 WBC 5.78 (4.4-10.8) 10^3/uL RBC 3.22 L (4.36-5.78) 10^6/uL Hgb 10.2 L (13.5-17.5) g/dL Hct 31.7 L (40.0-50.0) % MCV 98 H (80-95) fL MCH 31.7 (27.0-33.0) pg MCHC 32.2 (32.0-36.0) % RDW 12.3 (11.8-14.1) % Plt Count 82 L (130-400) 10^3/uL MPV (8.0-11.0) fL Immature Gran % 0.5 % Neutrophils % 63.5 % Lymphocytes % 19.0 % Monocytes % 11.8 % Eosinophils % 4.7 % Basophils % 0.5 % Nucleated RBC % 0.0 (0.0-0.3) % Absolute Neutrophils 3.67 (1.2-6.7) 10^3/uL Absolute Lymphocytes 1.10 L (1.2-3.4) 10^3/uL Absolute Monocytes 0.68 (0.1-0.8) 10^3/uL Absolute Eosinophils 0.27 (0.0-0.7) 10^3/uL Absolute Basophils 0.03 (0.0-0.2) 10^3/uL PT 11.6 H (9.1-11.1) sec INR 1.2 H (0.9-1.1) Sodium 136 (136-145) mmol/L Potassium 4.4 (3.5-5.1) mmol/L Chloride 97 L (98-107) mmol/L Carbon Dioxide 34.8 H (21.0-32.0) mmol/L Anion Gap 4.2 (3-11) mmol/L BUN 16 (7-18) mg/dL Creatinine 1.2 (0.70-1.30) mg/dL Est GFR (CKD-EPI 2020) 58.89 (mL/min/1.73m2) Glucose 176 H (74-106) mg/dL Calcium 8.9 (8.5-10.1) mg/dL Magnesium 2.0 (1.8-2.4) mg/dL Total Bilirubin 0.57 (0.2-1.0) mg/dL AST 23 (15-37) U/L ALT 25 (16-63) U/L Alkaline Phosphatase 75 (46-116) U/L Troponin I 18 (<or=76) ng/L Total Protein 8.5 H (6.4-8.2) g/dL Albumin 3.3 L (3.4-5.0) g/dL Urine Color (Yellow) Urine Clarity (Clear) Urine pH (5-8) Ur Specific [place] (1.005-1.025) Urine Protein (Neg-Trace) mg/dL Urine Ketones (Negative) mg/dL Urine Blood (Negative) Urine Nitrite (Negative) Urine Bilirubin (Negative) Urine Urobilinogen (Up to 0.2) mg/dL Ur Leukocyte Esterase (Negative) Urine Glucose (Negative) mg/dL Urine Opiates Screen (Negative) Urine Methadone Screen (Negative) Ur Barbiturates Screen (Negative) Ur Tricyclics Screen (Negative) Ur Amphetamines Screen (Negative) U Benzodiazepines Scrn (Negative) Urine Cocaine Screen (Negative) Ur THC Screen (Negative) [id number] Documentation Fingerstick Glucose Start: 07/10/24 18:59 Freq: .Stat Status: Active Protocol: Activity Type Activity Date Activity User E-sign Co-sign Detail Recorded Client Recorded Date Recorded By Document 07/10/24 20:11 HB [id number] 07/10/24 20:12 HB Intake and Output - 24 Hour Total 07/10/24 18:55 thru 07/10/24 19:09 Intake Total 10 Balance 10 Weight 69.4 kg Intake: IV 10 Falls Risk Assessment History of Falls Previous History 07/10/24 19:09 Contributing Factors Confusion,Impairments, 07/10/24 19:09 Incontinence,Medications Ambulatory Aids Uses ambulatory device 07/10/24 19:09 Tubes/Lines With any additional score 07/10/24 19:09 Gait Evaluation W/any additional score 07/10/24 19:09 Cognition Cognitive impairment 07/10/24 19:09 Fall Total Score 97 07/10/24 19:09 Level of Risk Maximum Risk 07/10/24 19:09 Problems (Last Reviewed 07/10/24 @ 19:08 by Teresita Blandon MD) Chronic respiratory failure (Acute) TIA (transient ischemic attack) (Acute) PAD (peripheral artery disease) (Acute) PVD (peripheral vascular disease) (Chronic) IPF (idiopathic pulmonary fibrosis) (Acute) v v v v v v v v v Sending and/or Receiving Nurses: Please use comment section below to note any information pertinent to the patient hand-off not included above. Information / Comments: Report received from: Jerome KILLIAN at [id number]
[2024-07-10] MEDS: Normal Saline Flush 10 ML SYR IVP (21:57)
[2024-07-10 22:20] LABS: Hemoglobin A1C 5.7 % (<5.7)
--- NOTE | 2024-07-10 23:55 | RESPIRATORY ---
Pt. stated that he uses O2, 3L/min at baseline. DME is [facility].
[2024-07-11] VITALS (9 sets, daily range): BP systolic 110–139; BP diastolic 62–79; PULSE 81–108; RESP 12–20; TEMP 36.2–37.1; O2SAT 96–99
[2024-07-11 06:22] LABS: HCT 38.1 % (40.0-50.0); HGB 12.4 g/dL (13.5-17.5); MCH 31.9 pg (27.0-33.0); MCHC 32.5 % (32.0-36.0); MCV 98 fL (80-95); MPV 9.2 fL (8.0-11.0); Platelet Count 107 10^3/uL (130-400); RBC 3.89 10^6/uL (4.36-5.78); RDW 12.3 % (11.8-14.1); RDW-SD 43.9 fL; WBC 5.11 10^3/uL (4.4-10.8)
[2024-07-11] MEDS: Levothyroxine 100 MCG TAB PO (06:36)
[2024-07-11 06:52] LABS: Anion Gap 3.4 mmol/L (3-11); BUN 13 mg/dL (7-18); CO2 33.6 mmol/L (21.0-32.0); CREATININE 0.9 mg/dL (0.70-1.30); Calcium 8.9 mg/dL (8.5-10.1); Chloride 101 mmol/L (98-107); Estimated GFR 83.18 (mL/min/1.73m2); Glucose 95 mg/dL (74-106); Magnesium 2.1 mg/dL (1.8-2.4); Potassium 4.1 mmol/L (3.5-5.1); Sodium 138 mmol/L (136-145); TSH 1.69 uIU/mL (0.36-3.74)
[2024-07-11 07:42] LABS: Calculated LDL 92 mg/dL (<100); Cholesterol 158 mg/dL (<200); HDL Cholesterol 52 mg/dL (40-60); Triglyceride 70 mg/dL (<150)
[2024-07-11] MEDS: Enoxaparin 40 MG/0.4 ML SYR SC (08:18)
[2024-07-11] MEDS: Aspirin 81 MG CHEW PO (08:19)
[2024-07-11] MEDS: Docusate Sodium 100 MG CAP PO (09:11)
[2024-07-11] MEDS: Polyethylene Glycol 3350 17 GM PACKET PO (09:11)
[2024-07-11] MEDS: Dorzolamide 2% 10 ML BTL OU ×2 (09:13→21:32)
[2024-07-11] MEDS: Normal Saline Flush 10 ML SYR IVP ×2 (09:14→21:33)
--- NOTE | 2024-07-11 09:37 | W.PM.PROGNOT ---
Date of Service Date of service: 07/11/24 Time of Service: 09:37 Assessment and Plan Assessment and plan (1) TIA (transient ischemic attack): Status: Acute Assessment and plan: - Patient initially described right sided weakness and numbness particularly in his arm that resolved by the time EMS arrived -However, patient's stated more of a global like weakness and inability to speak which she had had resolved by EMSs arrival -Patient had a CT angio head and neck that was without acute findings -Ordered MRI and echocardiogram which will not be done until 07/12/2024 -Also ordered speech consultation -Continue aspirin, started high-dose statin (2) PAD (peripheral artery disease): Status: Acute Assessment and plan: - Continue home medication regimen (3) PVD (peripheral vascular disease): Status: Chronic Assessment and plan: - Continue home medication regimen (4) Chronic respiratory failure: Status: Acute Assessment and plan: - Secondary to IPF -Reportedly requires admitted from 3 to 4 L nasal cannula -Apparently has also been attempting to get different oxygen delivery system as patient has been requiring increased amounts of oxygen with ambulation -Goal oxygen saturation 88 to 92% (5) IPF (idiopathic pulmonary fibrosis): Status: Acute Assessment and plan: - As noted above discussed with Dr Covarrubias Subjective Subjective Patient reports: no new complaints, feels better, tolerating liquids well, tolerating a regular diet and afebrile; denies shortness of breath Interval history since last seen: at baseline with no further symptoms noted. Exam Const General: cooperative, comfortable, no acute distress and frail appearing Nutritional Appearance: average body habitus Orientation: alert, awake and oriented to person [facility] Head: normal to inspection, normocephalic and atraumatic Mouth: oral mucosae normal Chest Chest: normal inspection of the chest Resp Effort & Inspection: normal respiratory effort Cardio Rate: regular rate GI Inspection: normal to inspection Palpation: soft Skin General skin exam: no rashes or lesions noted Neuro General: patient alert, patient awake, tone normal, moves all extremities and no focal motor deficits Cranial Nerves: EOM intact bilaterally, tongue midline and able to elevate shoulders bilaterally Speech: speech normal Extrem General: normal to inspection, full ROM and no pedal edema Psych Appearance: grossly normal Mental Status: mental status grossly normal Speech and Movement: speech and movement normal Mood: congruent mood Affect: normal affect Attitude: cooperative Objective Last Vital Signs Temp 36.2 C L 07/11/24 07:38 Pulse 108 H 07/11/24 08:29 Resp 12 07/11/24 07:38 BP 138/79 07/11/24 07:38 Pulse Ox 98 07/11/24 07:38 Laboratory Results - last 24 hr 07/10/24 07/10/24 07/10/24 18:59 20:25 20:30 WBC 5.78 RBC 3.22 L Hgb 10.2 L Hct 31.7 L MCV 98 H MCH 31.7 MCHC 32.2 RDW 12.3 Plt Count 82 L MPV Immature Gran % 0.5 Neutrophils % 63.5 Lymphocytes % 19.0 Monocytes % 11.8 Eosinophils % 4.7 Basophils % 0.5 Nucleated RBC % 0.0 Absolute Neutrophils 3.67 Absolute Lymphocytes 1.10 L Absolute Monocytes 0.68 Absolute Eosinophils 0.27 Absolute Basophils 0.03 PT 11.6 H INR 1.2 H Sodium 136 Potassium 4.4 Chloride 97 L Carbon Dioxide 34.8 H Anion Gap 4.2 BUN 16 Creatinine 1.2 Est GFR (CKD-EPI 2020) 58.89 Glucose 176 H Hemoglobin A1c 5.7 Calcium 8.9 Magnesium 2.0 Total Bilirubin 0.57 AST 23 ALT 25 Alkaline Phosphatase 75 Troponin I 18 20 Total Protein 8.5 H Albumin 3.3 L Triglycerides Total Cholesterol LDL Cholesterol, Calc HDL Cholesterol TSH Urine Color Yellow Urine Clarity Clear Urine pH 7.0 Ur Specific [place] 1.015 Urine Protein Negative Urine Ketones Negative Urine Blood Negative Urine Nitrite Negative Urine Bilirubin Negative Urine Urobilinogen 0.2 Ur Leukocyte Esterase Negative Urine Glucose Negative Urine Opiates Screen Negative Urine Methadone Screen Negative Ur Barbiturates Screen Negative Ur Tricyclics Screen Negative Ur Amphetamines Screen Negative U Benzodiazepines Scrn Negative Urine Cocaine Screen Negative Ur THC Screen Negative 07/10/24 07/11/24 21:59 06:12 WBC 5.11 RBC 3.89 L Hgb 12.4 L D Hct 38.1 L MCV 98 H MCH 31.9 MCHC 32.5 RDW 12.3 Plt Count 107 L MPV 9.2 Immature Gran % Neutrophils % Lymphocytes % Monocytes % Eosinophils % Basophils % Nucleated RBC % Absolute Neutrophils Absolute Lymphocytes Absolute Monocytes Absolute Eosinophils Absolute Basophils PT INR Sodium 138 Potassium 4.1 Chloride 101 Carbon Dioxide 33.6 H Anion Gap 3.4 BUN 13 Creatinine 0.9 Est GFR (CKD-EPI 2020) 83.18 Glucose 95 Hemoglobin A1c Calcium 8.9 Magnesium 2.1 Total Bilirubin AST ALT Alkaline Phosphatase Troponin I Cancelled Total Protein Albumin Triglycerides 70 Total Cholesterol 158 LDL Cholesterol, Calc 92 HDL Cholesterol 52 TSH 1.69 Urine Color Urine Clarity Urine pH Ur Specific [place] Urine Protein Urine Ketones Urine Blood Urine Nitrite Urine Bilirubin Urine Urobilinogen Ur Leukocyte Esterase Urine Glucose Urine Opiates Screen Urine Methadone Screen Ur Barbiturates Screen Ur Tricyclics Screen Ur Amphetamines Screen U Benzodiazepines Scrn Urine Cocaine Screen Ur THC Screen Time Spent with Patient Time Spent with Patient: 35-49 minutes Time was spent: preparing to see the patient(eg.review tests), obtaining and/or reviewing separately otained hiistory, ordering medications,tests, procedures, indepentently interpreting results and counseling the patient
--- NOTE | 2024-07-11 10:20 | NUR.NOTE ---
Accessed chart to reconcile orders for EKG with EKG?s in [facility]. Duplicate order cancelled. Nursing Note:
--- NOTE | 2024-07-11 11:20 | PHA.REVIEW2 ---
Pharmacy Admission Review Admission Clinical Review Admission Pharmacy Review: Vomiting (Acute) TIA (transient ischemic attack) (Acute) Chronic respiratory failure (Acute) TIA (transient ischemic attack) (Acute) PAD (peripheral artery disease) (Acute) IPF (idiopathic pulmonary fibrosis) (Acute) bimatoprost (From [employer] [facility] Allergy (Unknown, Verified 07/10/24 19:15) increased eye pressure methotrexate Allergy (Verified 07/10/24 19:15) Skin Rash Sulfa (Sulfonamide Antibiotics) Allergy (Verified 07/10/24 19:15) flu like sx, rash head to toe, abn gait timolol Adverse Reaction (Unknown, Verified 07/10/24 19:15) increased blood pressure Resuscitation Status DNR/DNI Height 5 ft 5 in Weight 63.049 kg Comments Comments/Follow Ups: MRI / echo scheduled for tomorrow - per provider patient back to baseline today Pharmacy Admission Review Renal Dosing Renal Dosing: BUN 13 mg/dL (7-18) 07/11/24 06:12 Creatinine 0.9 mg/dL (0.70-1.30) 07/11/24 06:12 Medications needing adjustments: Reviewed (CrCl 47.29 mL/min) List of meds needing interventions: Current medications are okay Anticoagulation Anticoagulation: Hgb 12.4 g/dL (13.5-17.5) L D 07/11/24 06:12 Hct 38.1 % (40.0-50.0) L 07/11/24 06:12 Plt Count 107 10^3/uL (130-400) L 07/11/24 06:12 INR 1.2 (0.9-1.1) H 07/10/24 18:59 Creatinine 0.9 mg/dL (0.70-1.30) 07/11/24 06:12 DVT Prophylaxis: Reviewed (Hgb increased from 10.2) Medications: Enoxaparin (40mg daily) Relevant Labs Relevant Labs: Sodium 138 mmol/L (136-145) 07/11/24 06:12 Potassium 4.1 mmol/L (3.5-5.1) 07/11/24 06:12 Chloride 101 mmol/L (98-107) 07/11/24 06:12 Magnesium 2.1 mg/dL (1.8-2.4) 07/11/24 06:12 Electrolytes, C-Reactive P, ESR: Reviewed Cardiac Review Cardiac Review: Troponin I Cancelled 07/10/24 21:59 BP, HR, EF%: Reviewed (BP WNL, HR 100) QTc Review QTc: Reviewed (439 from 07/10/24) IV to PO Switch IV Medications: Reviewed Home Meds Home Med List reviewed: Reviewed Relevent Home Meds Not ordered & why?: ketoconazole cream Current Meds Current Medication Order Review: Reviewed Comments Comments/Follow Ups: MRI / echo scheduled for tomorrow - per provider patient back to baseline today
--- NOTE | 2024-07-11 13:42 | INITIAL_ITS ---
Date of service: 07/11/24 Time of Service: 11:30 Care Management Initial Assmt Initial Assessment Reason for Hospitalization: TIA Functional Status/Living Situation Patient Presentation: Mick's called EMS last night when he c/o right sided weakness and numbness, particularly in his arm. also described some global weakness and inability to speak, which had resolved by the time EMS arrived. CT angio of head and neck was without acute findings. An MRI and echo will be performed tomorrow to complete his work up. Mick was up in the bedside chair when CM met with him today. His , Codey, was with him. Mick was very pleasant, smiled easily, but does not speak much. His speech was clear and appropriate when he did speak. Codey is Mick's DPOA and stated that he usually lets me do all the talking. Johnathan wears 2-4L of O2 at baseline. Mick and Codey have an apartment in [place]. They are mainly independent. Codey stated that Johnathan doesn't really like to ask for help, and that he believes Codey can take care of everything. Johnathan has agreed to HH RN and PT when discharged, however, and it seems he could benefit also from the [facility]. Town of Residence: [place] Resides with: Spouse (Codey) Significant Other/Family: Local (Codey. Daughter, Marta, lives in [place], but is over an hour away. Son, Simba, is in [place], but also not at a convenient distance.) Caregiver/Guardian: Codey Natural Supports: Codey, children, Employment Status: Retired (worked at [employer] for many years) Instrumental Activities of Daily Living (ADLs): Requires support with Dishes/food prep, [employer] Nurse, Groceries, Laundry and Transportation (Mick no longer drives. Codey is still driving. Codey does most of the small electric engine technician, as Mick has been becoming increasingly short of breath, although he still tries to help)) Medications Medication Management: No Issues/Barriers identified Physical Functioning/Mobility Assistive Device: Has a FWW, but only uses it if going out. Advance Directives Advance Directives: Do you have an Advance Directive: Y 12/03/22 10:28 AD On File at [facility]: Y 12/03/22 10:28 Date Asked 01/19/24 01/19/24 13:19 AD Date Reviewed 07/10/24 07/10/24 21:08 COLST On File at [facility] No 07/10/24 21:08 COLST Date Scanned Code Status Resuscitation Status DNR/DNI Portal Pt does not currently have a portal and education provided: Yes Insurance Coverage/Financial Issues Insurance: Medicare/ AARP supplement. Mick is currently working with [employer] to apply for Choices for Care to get more help in the home. Has an appointment with [facility] on Friday to help with application. Financial Issues: denies Care Team Visit Care Team Role Provider Type Rosalio Ibarra MD Primary Care Provider NON-[facility] STAFF PHYSICIAN Marybel Geronimo, SHEAR HELPER Other Providers SPEECH SENIOR PACKAGING ENGINEER OLOGIST Acosta Wilder, SHEAR HELPER Other Providers SPEECH LANGUAGE PATHOLOGIST Yael Starr Other Providers SPEECH LANGUAGE PATHOLOGIST Gayatri Thurston, SHEAR HELPER Other Providers SPEECH LANGUAGE PAT CARLI Chiu, SHEAR HELPER Other Providers SPEECH LANGUAGE PATHOLOGIST Teresita Blandon MD Emergency Provider [facility] STAFF PHYSICIAN Rick Monahan MD Admit Provider [facility] STAFF PHYSICIAN Attending Provider Other Providers Other: Palliative Care, Pulmonolgy, podiatry here at [facility] Discharge Potential Discharge Needs: Imaging/labs (MRI and cardiac echo ordered for Thursday 07/12.), PT Evaluation and PCP F/U Appt Anticipated Barriers to Discharge: None Identified Patient/Family Education Needs: Review discharge instructions, discuss Ask Me T hree Transportation: Private vehicle (with Codey) Plan: Anticipate that Mick will be discharged home with new orders for HH RN, PT and [facility]. CM offered OT, as Codey helps Mick bathe, but they declined this service. He will continue with his home O2. He will f/u with his PCP and his community providers and will continue per his discharge plan. CM will continue to follow. PFSH All Active Problems (Updated 07/10/24 @ 23:25 by Teresita Blandon MD) Vomiting (Acute) TIA (transient ischemic attack) (Acute) Chronic respiratory failure (Acute) TIA (transient ischemic attack) (Acute) Pain in both feet (Acute) Corns and callosities (Acute) Nail dystrophy (Acute) Onychomycosis (Acute) PAD (peripheral artery disease) (Acute) PVD (peripheral vascular disease) (Chronic) History of fracture of left ankle (Acute) Advanced care planning/counseling discussion (Acute) Palliative care encounter (Acute) History of bioprosthetic transcatheter aortic valve implantation (MP) (Acute) Respiratory failure with hypoxia (Acute) Severe aortic stenosis (Acute) Former cigarette smoker (Acute) IPF (idiopathic pulmonary fibrosis) (Acute) Allergic rhinitis (Acute) Vasculitis (Acute) Thoracic vertebral fracture (Acute) Cervical vertebral fracture (Acute) Actinic keratosis (Acute) Impairment of speech discrimination (Acute) Dysfunction of both eustachian tubes (Acute) Sensorineural hearing loss (SNHL) of both ears (Acute) Stasis dermatitis (Acute) Dupuytren's contracture (Acute) Glaucoma (Chronic) Atrial flutter (Acute) Left knee DJD (Acute) Cough (Acute) Conductive hearing loss of right ear with restricted hearing of left ear (Acute) Sensorineural hearing loss of combined sites, bilateral (Acute) History of serous otitis media (Acute) Tendonitis of left rotator cuff (Acute 12/01/15) Right rotator cuff tendinitis (Acute 01/31/16) Primary osteoarthritis of right knee (Acute 12/01/15) Primary osteoarthritis of right hip (Acute 12/01/15) Surgical History H/O ankle fusion Hx of local excision of skin lesion History of right hip replacement 2018 History of cataract surgery Family History Father , 59 Heart disease heart failure Hypertension Myocardial infarction Mother , 70 Heart disease Sister Breast cancer Sister COPD (chronic obstructive pulmonary disease) Emphysema, unspecified Brother MVA (motor vehicle accident) Brother Heart disease Cancer prostate cancer Hypertension Daughter Thyroid disorder Hypertension Social History Smoking/Tobacco Use Status: Former Tobacco Use tobacco type: cigarettes Pack- years: 15 Tobacco: How many years used: 39 Smoking risk assessment performed?: Yes Alcohol Intake: never Drug use: Never Housing: assisted living facility Do you feel safe at home: Yes Do you feel safe in your relationship?: Yes Readmission Within the Past 30 Days Yes or No: No SDOH(Care Management) Screening Will the Patient Participate in the Screening?: Yes Do you worry about having a steady place to live?: no Problems where you live: no known problems In the past 12 months, have you had to go without electric, gas, oil or water in your home?: no Have you or anyone in your house had to go without enough food to eat?: no Has lack of transportation kept you from medical appointments or from doing things needed for daily living?: no Has anyone in your support network made you feel unsafe for any reason?: no Anticipated HH Services Anticipated HH Services at Discharge [facility] Needed, PT, RN and Other (Better Breathing) Following Provider: Rosalio Ibarra MD.
[2024-07-11] MEDS: Latanoprost 0.005% 2.5 ML BTL OP (21:32)
[2024-07-11] MEDS: Atorvastatin 40 MG TAB 80 MG PO (23:10)
--- NOTE | 2024-07-12 | DI.MRI_ITS ---
Exam(s) MR BRAIN WO EXAM: MR BRAIN WO CLINICAL HISTORY: TIA TECHNIQUE: Multiplanar multisequence MRI of the brain was performed. COMPARISON: CT CT BRAIN NECK CTA from 07/10/2024 FINDINGS: VENTRICLES AND EXTRA AXIAL SPACES: Normal in size and morphology for the patient's age. MIDLINE SHIFT: None. CEREBRAL PARENCHYMA: No focus of restricted diffusion to suggest acute infarct. No space-occupying le zane identified. There are areas of hyperintense signal seen in the white matter on the FLAIR and T2 weighted images consistent with chronic microvascular ischemic disease. HEMORRHAGE: None. BRAINSTEM/CEREBELLUM: Normal. CALVARIUM: Normal. VISUALIZED PARANASAL SINUSES/MASTOIDS:There is mucosal thickening in the left sphenoid sinus. The re maining visualized paranasal sinuses are clear. There is fluid seen in the left mastoid air cells. PILOT POINT OF [place]: Normal flow void. PITUITARY GLAND: Unremarkable. OTHER FINDINGS: None. IMPRESSION: 1. No acute intracranial process. 2. Age-appropriate cerebral atrophy and chronic microvascular ischemic disease. DATA REPOSITORY:
--- NOTE | 2024-07-12 | DI.RAD_ITS ---
Exam(s) XR CERVICAL SPINE COMP 4-5V EXAM: XR CERVICAL SPINE COMP 4-5V CLINICAL HISTORY: bilateral hand numbness. TECHNIQUE: 2D digital imaging was performed. COMPARISON: CT CT BRAIN NECK CTA from 07/10/2024 MR MR BRAIN WO from 07/12/2024 FINDINGS: Seven views No evidence of acute fracture nor listhesis. There is thick calcification at multiple levels in the anterior lung tuna ligament extending from L3 down words resulting in an element of physiologic fusio n. The flowing multilevel thick calcification of the anterior longitudinal ligament measures 9 mm th ick AP and is corticated anteriorly. There are no cervical ribs. There is facet arthropathy which i s most prominent at C2-3 and C3-4. 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 IMPRESSION: Multilevel thick calcification of the anterior lung tuna ligament at and below C3 level extending to the upper thoracic level. 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 DATA REPOSITORY: RADIATION DOSE DELIVERED:
[2024-07-12 05:29] VITALS: BP 130/77; PULSE 92; RESP 15; TEMP 36.8; O2SAT 99
[2024-07-12] MEDS: Levothyroxine 100 MCG TAB PO (07:25)
--- NOTE | 2024-07-12 07:30 | DI.US_ITS ---
APPROVED REPORT EXAM: Comprehensive 2D, Doppler, and color-flow Echocardiogram Patient Location: In-Patient Room/Bed: 228 Manager Crisis: Betsy Shin RDCS (AE) Indications: TIA Other Information Study Quality: Adequate. Technically limited study due to body habitus. Conclusion Normal left ventricular wall thickness and chamber size. Ejection fraction is 55%. Wall motion is n ormal Normal right ventricular size and function Atria are normal in size There is a bioprosthetic aortic valve with a mean gradient of 6 mmHg. There is no aortic regurgitati on Estimated right ventricular systolic pressure is 44 mmHg Wall motion Left Ventricle The left ventricle is normal size. The overall left ventricular systolic function appears normal. T here is normal left ventricular wall thickness. There is normal LV segmental wall motion. There is no ventricular septal defect visualized. LVEF is 55%. Right Ventricle Right ventricle is grossly normal in size. The right ventricular systolic function is normal. Atria The left atrium size is normal. The right atrium size is normal. The interatrial septum is intact wit h no evidence for an atrial septal defect. Aortic Valve TAVR aortic valve. There is no aortic valvular stenosis. No aortic regurgitation is present. Mitral Valve The mitral valve is normal in structure. No evidence of mitral valve stenosis. Trace mitral regurgita tion. Tricuspid Valve The tricuspid valve is normal in structure. There is no tricuspid valve stenosis. Trace tricuspid reg urgitation. The RVSP is 43.6_ mmHg. Pulmonic Valve Pulmonic valve is not well visualized. There is no pulmonic valvular stenosis. There is no pulmonic v alvular regurgitation. Great Vessels The aortic root is normal in size. Ascending aorta is not well visualized. Aortic arch is not well vi sualized. IVC is normal in size and collapses >50% with inspiration. Pericardium There is no pericardial effusion. 2D Dimensions IVSD d PLAX 1.20 cm M: 0.6-1.2 Ao Root d 2.37 cm M: 3.1 - 3.7 LVPW d PLAX 1.20 cm M: 0.6 - 1.2 LVID d PLAX 3.63 cm M: 4.2 - 5.8 LVDs 2.62 cm M: 2.5 - 4.0 LV EF Teichholz 55.1 % FS 28.01 % LV EDV (Teich) 55.7 mL LV ESV (Teich) 25.0 mL Auto EF LV EDV A4C 95.0 mL LV EDV A2C 87.3 mL LV EDV BP 90.3 mL LV ESV A4C 41.8 mL LV ESV A2C 39.4 mL LV ESV BP 41.5 mL LVEF(%) A4C 56.0 % LVEF(%) A2C 54.9 % LVEF(%) BP 54.0 % LV SV A4C 53.2 ml LV SV A2C 47.9 ml LV SV BP 48.8 ml LV CO A4C 4.6 L/min LV CO A2C 4.2 L/min LV CO BP 4.4 L/min HR A4C 86.34 BPM HR A2C 88.67 BPM LV EDV Index (BP) LA Volume LA Length A4C 5.4 cm LA Length A2C 5.1 cm LA Area A4C s 17.50 cm2 LA Area A2C s 14.91 cm2 LA Vol A4C A-L 48.54 mL LA Vol A2C A-L 37.08 mL LA Vol Biplane A-L 43.5 mL LA Vol/BSA A4C A-L LA Vol/BSA A2C A-L LA Vol/BSA BP A-L 24.9 mL/m2 LA Vol A4C MOD 44.3 mL LA Vol A2C MOD 35.4 mL LA Vol BP MOD 39.9 mL RA Volume RA Area A4C 10.3 cm2 RA ESV A4C (A-L) 18.3mL RA Vol/BSA A4C A-L RA Length A4C 4.9 cm RA ESV A4C (MOD) 17.5mL LV Diastology MV E' medial 0.068 (>0.07 m/s) MV E Vmax 0.56 (0.4-1.3 m/s) MV E/E' MED 8.31 (<14) MV A Vmax 0.80 (0.4-1.3 m/s) MV E' lateral 0.080 (>0.1 m/s) E/A Ratio 0.7 MV E/E' LAT 7.03 (<14) MV E' Average 0.074 m/s MV E/E'(average) 7.62 Aortic Valve AoV Vmax 1.83 m/s LVOT Vmax 1.13 m/s AoV Peak Grad 13.4 mmHg LVOT Peak Grad 5.1 mmHg AoV Area (Vmax) 1.95 cm2 LVOT VTI 0.212 m AoV VTI 0.305 m LVOT Mean Grad 3.5 mmHg AoV Mean Kiran. 1.10 m/s LVOT SV 67.02 mL AoV Mean Grad 5.9 mmHg LVOT Diam s 2.00 cm AoV Area (VTI) 2.19 cm2 AV Regurg Peak Gr. 13.37 mmHg Velocity Ratio 0.62 Mitral Valve MV DT 230 (160-240 msec) MV Vmax TIPS 0.80 m/s MV Mean Grad 0.9 (<2mmHg) MV VTI 0.146 m Pulmonary Valve PV Vmax 1.27 (0.5-1.5 m/s) RVOT Vmax 0.95 m/s PV Peak Grad 6.4 mmHg RVOT Peak Gr. 3.6 mmHg PV Mean Kiran 0.82 m/s RVOT VTI 0.141 m PV Mean Grad 3.0 mmHg RVOT Mean Gr. 1.7 mmHg Tricuspid Valve RA Pressure 3.00 mmHg TR Vmax 3.19 m/s TV S' 0.10 m/s TR Peak Grad 40.6 mmHg RVSP (TR) 43.6 mmHg
--- NOTE | 2024-07-12 08:52 | NUR.NOTE ---
Nursing Note: pt off floor for MRI scan at this time
[2024-07-12 09:08] VITALS: BP 123/78; PULSE 97; RESP 20; TEMP 36; O2SAT 98
[2024-07-12] MEDS: Dorzolamide 2% 10 ML BTL OU (09:34)
[2024-07-12] MEDS: Aspirin 81 MG CHEW PO (09:34)
[2024-07-12] MEDS: Normal Saline Flush 10 ML SYR IVP (09:34)
--- NOTE | 2024-07-12 09:47 | W.SPSTE ---
Date of service: 07/12/24 Time of Service: 09:30 Subjective Clinical (Bedside) Swallow Evaluation Speech Language Pathology Referred by: Rick Monahan Referral Type: Clinical Swallow Evaluation Reason for Referral/HPI: Mick Mejia is a 84yo male who was adm to [facility] 07/11/24 with R arm weakness and inability to speak. Symptoms have since fully resolved and he is being worked up for TIA vs CVA - MRI pending. Mick denies current difficulty with speech, language, cognition, or swallowing. AUDIO VISUAL DESIGN ENGINEER IMPRESSIONS & RECOMMENDATIONS: Clinical swallow evaluation revealed WFL oral pharyngeal swallow function. No overt s/s dysphagia. Continue current diet (L6 Soft & Bite Size, Thin Liquids) per patient preference. A screening was completed for speech language, including the Cookie Theft Picture, BNT Short Form, and Orientation questioning which were all WNL. FURTHER AUDIO VISUAL DESIGN ENGINEER SERVICES: No further AUDIO VISUAL DESIGN ENGINEER services indicated Diet Recommendations: SOLIDS: 6- Soft & Bite Size (Patient preference) LIQUIDS: 0-Thin Liquids MEDICATIONS: Whole with 0-Thin Liquids or if larger pill, consider trying in applesauce (whole vs cut vs crushed) RISK MANAGEMENT: HOB upright as tolerated; upright for all PO intake. Oral hygiene BID/2x per day Level of Assistance/Supervision: Independent SUBJECTIVE: Patient received alert/awake, agreeable to evaluation Pain Reported? None Baseline Swallow Function: Patient denies swallowing difficulty prior to admission and eats a regular diet at baseline. Nursing reports handoff report of some difficulty swallowing large pills PO Trials Assessed: IDDSI 0 Thin Liquids (Coffee, juice, milk via cup) IDDSI 4 Puree Solid (Applesauce) IDDSI 7EC Easy to Chew Solid (Cheerios in milk) Medications administered by RN (With sip liquid) Oral Mechanism Examination: Loose fitting upper/lower dentures Cranial Nerve Assessment: CN V ? Trigeminal Facial Sensation WNL Jaw Strength/ROM WNL ?WNL CN VII- Facial WNL labial ROM, strength, coordination. WNL lingual sensation WNL CN IX ? Glossopharyngeal WNL palatal elevation with phonation. No evidence of nasal emissions WNL CN X ? Vagus WNL Vocal quality and volume. Strong/sharp volitional cough WNL CX XII ? Hypoglossal WNL lingual ROM, strength, coordination WNL Oral Phase Findings: WFL Loose fitting dentures, prolonged mastication Pharyngeal Phase Findings: WFL No coughing, throat clearing, change in vocal quality Carolina Themariano Picture: WNL syntax/sentence struture, semantics/word choice, thought formulation Orientation = /6 BNT Short = + 2 with phonetic cue (errors with abstract items- unicorn, stethoscope) AMRs/SMRs = WFL ASSESSMENT: Further AUDIO VISUAL DESIGN ENGINEER Services not indicated Recommendation at Discharge: N/A Suggested Referrals: N/A Education Provided to: Nursing, Patient Topics Addressed: AUDIO VISUAL DESIGN ENGINEER findings, standard swallowing precautions PLAN: Evaluation only AUDIO VISUAL DESIGN ENGINEER CPT Code: 70050 Clinical Swallowing Evaluation TOTAL TIME: 20 Minutes [phone]
--- NOTE | 2024-07-12 10:37 | IN_ITS ---
PT Notes Visit Reasons: TIA (cardiology) Physical Therapy Initial Evaluation Date: 07/12/2024 Referring Doctor: Dr. Monahan PT Orders: PT CONSULT: PT evaluation and treat Precautions: Standard, oxygen continuous, telemetry Patient Profile/Admitting Diagnosis: Patient is 84-year-old male presented to the ED on 07/10/2024 with right-sided weakness and numbness specifically in upper extremity. His reported difficulty with speech which resolved prior to EMS arrival at her home. Workup included initial CTA 07/11 revealed significant atherosclerotic disease at the level the carotid bifurcations and proximal ICAs on both sides the neck. This is more prominent on left side with estimated stenosis of 70-99 percent on the left and 50-69 percent stenosis on the right. He was admitted to the Medr unit with MRI of the brain on 07/12 with no acute intracranial findings; age-appropriate and chronic microvascular ischemic disease noted. Echo on 07/12 revealed PMHX: Vomiting (Acute) TIA (transient ischemic attack) (Acute) Chronic respiratory failure (Acute) TIA (transient ischemic attack) (Acute) Pain in both feet (Acute) Corns and callosities (Acute) Nail dystrophy (Acute) Onychomycosis (Acute) PAD (peripheral artery disease) (Acute) PVD (peripheral vascular disease) (Chronic) History of fracture of left ankle (Acute) Advanced care planning/counseling discussion (Acute) Palliative care encounter (Acute) History of bioprosthetic transcatheter aortic valve implantation (MP) (Acute) Respiratory failure with hypoxia (Acute) Severe aortic stenosis (Acute) Former cigarette smoker (Acute) IPF (idiopathic pulmonary fibrosis) (Acute) Allergic rhinitis (Acute) Vasculitis (Acute) Thoracic vertebral fracture (Acute) Cervical vertebral fracture (Acute) Actinic keratosis (Acute) Impairment of speech discrimination (Acute) Dysfunction of both eustachian tubes (Acute) Sensorineural hearing loss (SNHL) of both ears (Acute) Stasis dermatitis (Acute) Dupuytren's contracture R 4th digit (Acute) Glaucoma (Chronic) Atrial flutter (Acute) Left knee DJD (Acute) Cough (Acute) Conductive hearing loss of right ear with restricted hearing of left ear (Acute) Sensorineural hearing loss of combined sites, bilateral (Acute) History of serous otitis media (Acute) Tendonitis of left rotator cuff (Acute 12/01/15) Right rotator cuff tendinitis (Acute 01/31/16) Primary osteoarthritis of right knee (Acute 12/01/15) Primary osteoarthritis of right hip (Acute 12/01/15) Surgical History H/O ankle fusion Hx of local excision of skin lesion History of right hip replacement 2018History of cataract surgery Social History/Home Situation: Patient resides in a senior housing apartment with 1 step to enter with his in [place]. he is on 2 to 4 L oxygen continuous. He uses of FWW for outdoor ambulation only. He no longer drives. His assists with bathing dressing grooming meal prep perinatology physician and chartered financial analyst. His transports him to all appointments. Equipment Owned/DME: FWW, 4WW, home oxygen 2-4L as needed, grab bars in bathroom Subjective: Pt reports he is feeling well. He states he has had a busy morning going to 2 tests and seeing the Speech Therapist. Objective: General Observation: Pt presents seated in chair with oxygen on 2L/min via NC and telemetry in place. He is agreeable to participate in PT assessment Mental Status: A and Oriented x 4 Pain: denies Vitals: Rest: oxygen saturation 98% on 2L/Min (after fingers warmed with blanket d/t poor perfusion without )Monitored by Nursing via telemetry throughout session ROM: Right Upper Extremity: WFL noted dupuytren's contracture 4th digit, Left Upper Extremity: WFL Right Lower Extremity:WNL Left Lower Extremity: WNL except ankle d/t fusion Strength: Right Upper Extremity: grossly 4/5 Left Upper Extremity: grossly 4/5 Right Lower Extremity:grossly 4-/5 Left Lower Extremity: grossly 4-/5 Sensation: intact denies parasthesia Bed Mobility/Transfers: Supine to sit independent Sit to stand SBA with cues to push up from chair Stand to sit SBA Bed to chair SBA with and without FWW Gait: amb. 75 feet x 1 with FWW SBA with w/c follow for safety. Pt able to manage oxygen tubing independently. Patient demonstrates reciprocal pattern stairs: 1 step with FWW CGA , dependent for O2 tank management Balance: Static Sitting: Normal Dynamic Sitting: Normal Static Standing: Normal without upper extremity support Dynamic Standing: Good plus with 1 upper extremity support Special Tests: [] Mobility Limitations Standardized Measure [] [facility] AM-PAC 6 clicks Basic Mobility Inpatient Short Form: [] Raw Score: 23 CMS Score: 11.20% Informed Consent/Education: Patient instructed in purpose of PT consult. Assessment: Pt is 84 yo male presenting oxygen dependent to maintain saturation >88%. Patient presents with clinical signs and symptoms consistent with current/admitting diagnoses that have resulted to mobility limitations, gait instability, generalized weakness, and impairment of motor control as demonstrated by the following impairment level findings: 1. Decreased strength to BLE major muscle groups 2. Impaired standing balance 3. Impaired functional activity tolerance Impairments are contributing to the following functional limitations: 1. Inability to safely ambulate without assistive device 2. Increase completion time for mobility ADL performance 3. Increased fall risk 4. Difficulty manageing steps alone safely Patient is assessed as a moderate complexity based on the following: History: 84-year-old male with impairment level findings, functional limitations, and past medical history as indicated above Examination: Demonstrable impairment in strength, balance, and mobility level with underlying impairments and functional limitations as documented above Presentation: evolving Decision Making: moderate Goals: 1. Independent ambulation with FWW >200 feet level surfaces including oxygen tubing management 2 . SBA 1 step with FWW to safely enter and exit his home safely. Plan of Care/Treatment Plan: Pt would benefit from skilled PT 1-2 times per day x 7 days/week for global strengthening, transfers, ambulation, pain management and balance facilitation until medically appropriate for discharge or goals are met. DISCHARGE RECOMMENDATIONS: Pt to utilize FWW within home Home with services. Patient will benefit from home health PT services in order to progress mobility level using least restrictive assistive ambulatory device, assess home safety, identify additional equipment needs, and establish a functional maintenance program that will increase ability of patient to remain at home. Therapeutic Activity: transfers with SBA and cues for hand placement. x 3 trials to push up as pt attempts to stand with hands on fWW pt ambulate 145 feet with FWW including turns obstacle management and door management with SBA able to manage oxygen tubing including winding tube to keep away from his feet. dynamic stand balance within STEVEN without UE support CGA TREATMENT CODE/TIME: 44535 x 20 mins for 1 unit, 04239 x 21 mins for 1 unit/ [id number] Thank you for the opportunity to participate in the care of this patient. Stephanie Mccain, PT Please sign an return this page within 30 days if you agree with the above POC. Thank you! Physician Signature Date [facility]
[2024-07-12 11:24] VITALS: BP 115/71; PULSE 85; RESP 16; TEMP 36.5; O2SAT 95
[2024-07-12 11:29] VITALS: BP 122/77; PULSE 103; RESP 18; TEMP 36.9; O2SAT 98
--- NOTE | 2024-07-12 14:27 | PDOC.CMDIS ---
Date of service: 07/12/24 Time of Service: 14:27 LACE Index Scoring Tool Questions: Length of Stay (in days): 2 Was the patient admitted via the E.D.?: Yes Comorbidities: Chronic Pulmonary Disease E.D. Visits: 0 Answers: Total Score: 7 Risk of Readmission: Low Risk Care Management Discharge Plan Reason for Hospitalization: TIA Discharge Plan: Mick will return home today with new orders for HH RN, PT. His will drive him home via private vehicle; she brought in his own O2 tank for the transport home. Mick will follow up with his PCP and discharge plan of care. He is happy to be going home. Patient/Family Education Needs: Review discharge instructions and limitations, discussion of self care needs including ask me three. Services Needed at Discharge: Home Health Care Services (HH RN, PT) [facility] Related Social Needs: No Data to Display
[2024-07-12 15:19] VITALS: BP 119/76; PULSE 98; RESP 18; TEMP 37.2; O2SAT 98
--- NOTE | 2024-07-12 15:21 | DSE_ITS ---
Date of service: 07/12/24 Time of Service: 15:21 DS: Diagnosis Discharge Diagnosis (1) TIA (transient ischemic attack): Status: Acute (2) PAD (peripheral artery disease): Status: Acute (3) PVD (peripheral vascular disease): Status: Chronic (4) Chronic respiratory failure: Status: Acute (5) IPF (idiopathic pulmonary fibrosis): Status: Acute Discharge Plan Disposition Patient Disposition: Home W/Home Health Services Condition: Stable Discharge Details Reason For Visit: TIA Admit Date/Time: 07/10/24 20:42 Admit Provider: Rick Monahan Attending Provider: Rick Monahan Primary Care Provider: Rosalio Ibarra Hospital Course Hospital Course: This is an 84-year-old male patient with a past medical history significant for idiopathic pulmonary fibrosis with chronic hypoxic respiratory failure on chronic oxygen, peripheral vascular disease, peripheral arterial disease, aortic stenosis status post AVR, who presented to the emergency department with reports of right sided weakness that came on while eating dinner. By the time EMS arrived he was back to his baseline. also reported a more global weakness with inability to speak. He had had no recent illness and denies any similar history. His workup in the emergency department did include a CTA of the head and neck which showed no acute intracranial findings, chronic small vessel white matter ischemic changes but did show significant atherosclerotic disease of the carotid bifurcations and proximal ICA on both sides of the neck more prominent on the left with estimated stenosis of 70 to 99% and 50-69 on the right. He was admitted to the medical surgical unit under hospitalist service on telemetry for stroke rule out. Brain MRI showed no acute intracranial process. E chocardiogram showed preserved ejection fraction at 55% with no wall motion abnormality no significant valvular disease. He did have a couple episodes of right upper extremity weakness reported while hospitalized. This was transient and not appreciated on evaluation. He did undergo a cervical spine x-ray to evaluate for spinal stenosis. Findings did show multilevel thick calcifications of the anterior ligament at and below C3 extending to the upper thoracic level. Multi level facet arthropathy also found on MRI of the brain with spinal canal stenosis at the C 2-3 level. He has remained hemodynamically stable with no dysrhythmias on telemetry. He was evaluated by physical therapy who recommends home PT evaluation. He will be discharged home to continue baby aspirin daily with added atorvastatin. Follow-up with primary care provider for further outpatient workup and recommendations as warranted. discharge discussed with DR Covarrubias Home Meds and New Rx's Prescriptions: New atorvastatin 40 mg tablet 40 mg PO QHS Qty: 30 0RF Continued ketoconazole 2 % cream 1 applic topical DAILY Qty: 120 6RF Rx Instructions: Apply to toenails once daily acetaminophen [Tylenol] 325 MG tablet 325 mg PO PRN aspirin 81 MG tablet,chewable 81 mg PO DAILY latanoprost 0.005 % drops 1 drp ophthalmic (eye) QPM levothyroxine 100 mcg tablet 100 mcg PO DAILY Patient Comments: TAKE 1 TABLET BY MOUTH ONCE DAILY dorzolamide 2 % drops 1 drp ophthalmic (eye) BID Patient Comments: INSTILL ONE DROP IN EACH EYE TWO TIMES A DAY Discharge Instructions Instructions: Transient ischemic attack, Carotid Artery Stenosis (DC) Additional Instructions: total cholesterol 158 triglycerides 70 LDL 92 HDL 52 cervical spine xray to discuss with your doctor: Multilevel thick calcification of the anterior lung tuna ligament at and below C3 level extending to the upper thoracic level. There is multilevel facet arthr opathy and findings on MRI brain earlier today consistent with spinal canal stenosis at C2-3 level. echocardiogram: EF 55% with no wall motion abnormality, RVSP 44 mmHg, no significant valvular disease. MRI brain: 1. No acute intracranial process. 2. Age-appropriate cerebral atrophy and chronic microvascular ischemic disease. CTA head and neck: 1. There is significant atherosclerotic disease at the level the carotid bifurcations and proximal ICAs on both sides the neck. This is more prominent on left side with estimated stenosis of 70-99 percent on the left and 50-69 percent stenosis on the right. Stand Alone Forms: Nursing Discharge Form Referrals: Rosalio Ibarra MD [Primary Care Provider] - 07/22/24 12:00 pm (Please arrive at 11:45) Activity:: Activity as Tolerated Equipment/Supplies:: No Equipment Needed Diet:: As Tolerated Discharge Orders Discharge Orders: Discharge Order (Routine); Ordered 07/12/24 Ordered By: Sharla Pabon Discharge Data Discharge Date/Time-TO BE ENTERED AT DEPARTURE: 07/12/24 16:50 DS: Summary Time Spent with Patient providing and/or coordinating discharge services: Greater than 30 minutes Status at Discharge Functional status at discharge: uses cane/walker Overall status at discharge: patient is back to baseline Mental Status: mental status grossly normal Speech and Movement: speech and movement normal Mood: congruent mood Affect: normal affect Quality:SDOH Health Related Social Needs: No Data to Display Exam Const General: cooperative, comfortable, no acute distress and frail appearing Nutritional Appearance: average body habitus Orientation: alert, awake, oriented x3 and oriented to person HENMT Head: normal to inspection, normocephalic and atraumatic Mouth: oral mucosae normal Chest Chest: normal inspection of the chest Resp Effort & Inspection: normal respiratory effort Cardio Rate: regular rate GI Inspection: normal to inspection Palpation: soft Skin General skin exam: no rashes or lesions noted Neuro General: patient alert, patient awake, patient oriented x3, tone normal, moves all extremities and no focal motor deficits Cranial Nerves: EOM intact bilaterally, tongue midline and able to elevate shoulders bilaterally Speech: speech normal Extrem General: normal to inspection, full ROM and no pedal edema Psych Appearance: grossly normal Mental Status: mental status grossly normal Speech and Movement: speech and movement normal Mood: congruent mood Affect: normal affect Attitude: cooperative DS: Data Vitals/I&O Vitals and I&O: Vital Signs Temperature 37.2 C 07/12/24 15:19 Temperature Source Temporal Artery Scan 07/12/24 15:19 Pulse 98 H 07/12/24 15:19 Pulse Rhythm Regular 07/10/24 21:58 Pulse 90 07/10/24 20:20 Respiratory Rate 18 07/12/24 15:19 Respiratory Effort Normal 07/10/24 21:58 Respiratory Depth Normal 07/10/24 21:58 Respiratory Pattern Normal 07/10/24 21:58 Blood Pressure 119/76 07/12/24 15:19 Blood Pressure Mean 92 07/10/24 21:16 Blood Pressure Position Sitting 07/10/24 18:58 Pulse Oximetry 98 07/12/24 15:19 Oxygen Delivery Method Nasal Cannula 07/12/24 15:19 Oxygen Flow Rate 2 07/12/24 15:19 Pain Level 2 07/12/24 11:24 Comment MAP 103 07/10/24 21:50 Intake & Output 07/11/24 07/12/24 07/12/24 23:59 11:59 23:59 Intake Total 490 / 1190 600 / 600 Output Total 100 / 100 Balance 490 / 890 500 / 500 Intake: IV Oral 480 / 1180 600 / 600 Output: Urine 100 / 100 Other: Urine Color Yellow Yellow Yellow Urine Appearance Clear Cloudy Clear Urine Odor Normal Normal Comment voided independently in toilet voided unmeasurable amount unknown void into toilet [facility] All Active Problems (Updated 07/10/24 @ 23:25 by Teresita Blandon MD) Vomiting (Acute) TIA (transient ischemic attack) (Acute) Chronic respiratory failure (Acute) TIA (transient ischemic attack) (Acute) Pain in both feet (Acute) Corns and callosities (Acute) Nail dystrophy (Acute) Onychomycosis (Acute) PAD (peripheral artery disease) (Acute) PVD (peripheral vascular disease) (Chronic) History of fracture of left ankle (Acute) Advanced care planning/counseling discussion (Acute) Palliative care encounter (Acute) History of bioprosthetic transcatheter aortic valve implantation (MP) (Acute) Respiratory failure with hypoxia (Acute) Severe aortic stenosis (Acute) Former cigarette smoker (Acute) IPF (idiopathic pulmonary fibrosis) (Acute) Allergic rhinitis (Acute) Vasculitis (Acute) Thoracic vertebral fracture (Acute) Cervical vertebral fracture (Acute) Actinic keratosis (Acute) Impairment of speech discrimination (Acute) Dysfunction of both eustachian tubes (Acute) Sensorineural hearing loss (SNHL) of both ears (Acute) Stasis dermatitis (Acute) Dupuytren's contracture (Acute) Glaucoma (Chronic) Atrial flutter (Acute) Left knee DJD (Acute) Cough (Acute) Conductive hearing loss of right ear with restricted hearing of left ear (Acute) Sensorineural hearing loss of combined sites, bilateral (Acute) History of serous otitis media (Acute) Tendonitis of left rotator cuff (Acute 12/01/15) Right rotator cuff tendinitis (Acute 01/31/16) Primary osteoarthritis of right knee (Acute 12/01/15) Primary osteoarthritis of right hip (Acute 12/01/15) Surgical History H/O ankle fusion Hx of local excision of skin lesion History of right hip replacement 2018 History of cataract surgery Family History Father , 59 Heart disease heart failure Hypertension Myocardial infarction Mother , 70 Heart disease Sister Breast cancer Sister COPD (chronic obstructive pulmonary disease) Emphysema, unspecified Brother MVA (motor vehicle accident) Brother Heart disease Cancer prostate cancer Hypertension Daughter Thyroid disorder Hypertension Social History Smoking/Tobacco Use Status: Former Tobacco Use tobacco type: cigarettes Pack- years: 15 Tobacco: How many years used: 39 Smoking risk assessment performed?: Yes Alcohol Intake: never Drug use: Never Housing: assisted living facility Do you feel safe at home: Yes Do you feel safe in your relationship?: Yes Time Spent with Patient Time Spent with Patient: 70-84 minutes4 Time was spent: preparing to see the patient(eg.review tests), obtaining and/or reviewing separately otained hiistory, ordering medications,tests, procedures, indepentently interpreting results, counseling the patient and care coordination
--- NOTE | 2024-07-12 15:25 | PDOC.HHF2F_ITS ---
Home Health Referral Home Health Orders Medical diagnosis necessitation home health referral: right hand weakness, idiopathic pulmonary fibrosis, severe aortic stenosis. Registered Nurse: Check all that apply Instruct on new or changed medication(s)/assess compliance: Ordered Assess for exacerbation of medical condition, instruct patient/caregivers on signs and symptoms to report for early detection: Ordered Physical Therapist: Check all that apply Increase strength & endurance for safe mobility at home: Ordered To design/establish home maintenance program: Ordered Fall reduction therapy program for patient with history of frequent falls: Ordered Home safety evaluation and teaching/gait training including stair management (if applicable): Ordered Better Breathing Program: Ordered Home Bound Status Requires the aid of supportive device (check all that apply): Walker Describe why leaving home would require a considerable and taxing effort: Requires frequent rest periods and Oxygen Encounter Date and Reason: I certify that a FTF encounter for this patient was performed on July 12, 2024 and that such encounter was related to the primary reason the patient requires home health services. The encounter was conducted in the following manner: * By me as the certifying physician, LEAD RAMP AGENT, PA or * By an inpatient physician, LEAD RAMP AGENT or PA during an inpatient stay who communicated findings to me, Certification And Authentication I certify that I composed the above information based on my clinical judgment relating to this patient's medical condition and, if applicable, clinical findings communicated to me by the NPP or inpatient physician who performed the FTF encounter. Name of Provider that will be monitoring home health services: Rosalio Ibarra
== END 2024-07-12 16:50 | disposition home health service (06) ==
LOC: ER 21:08 → MS 21:58
PROVIDERS: Admitting Provider Family Medicine; Emergency Provider Emergency Medicine; PCP Family Medicine; Visit Provider Family Medicine
DX: G45.1 Carotid artery syndrome (hemispheric) (principal); I73.9 Peripheral vascular disease, unspecified; J84.112 Idiopathic pulmonary fibrosis; Z99.81 Dependence on supplemental oxygen; J96.11 Chronic respiratory failure with hypoxia; B35.1 Tinea unguium; Z95.4 Presence of other heart-valve replacement; Z87.891 Personal history of nicotine dependence; H90.3 Sensorineural hearing loss, bilateral; I48.92 Unspecified atrial flutter; Z96.641 Presence of right artificial hip joint; M17.11 Unilateral primary osteoarthritis, right knee; M48.02 Spinal stenosis, cervical region; R20.2 Paresthesia of skin; R53.1 Weakness
CPT/HCPCS: 00123; 36415; 36416; 70496; 70498; 80048; 80053; 80061; 80307; 82962; 85027; 92610; 93005; 93306; 96372; 97162; 97530; 99285; J1650; 70551; 72050; 81003; 83036; 83735; 84443; 84484; 85025; 85610; 93010; 94760; 99223; 99232; 99239; G0378; J3490